=== PATIENT | female | born 1970 | race Caucasian/White ===

== ENCOUNTER 2016-10-05 11:55 | Observation (INO) | payer BC ==
[2016-10-05 12:17] VITALS: BMI 32.3
--- NOTE | 2016-10-05 12:27 | DR.URIAD ---
HPI - Time Seen Time seen: 12:26 - PCP Primary Care Physician: DR. GALEAS - HPI Comment HPI Comment: PATIENT IS WEAK AND DRAINED. NOT GETTING BETTWER ON OUT PATIENT MEDS. - Complaint Chief Complaint Doctors Comments: COUGH, CONGESTION, SOB AND CHEST PAIN FOR FEW DAYS Chief Complaint:: PT C/O CCC, SOB .. PT WAS SEEN AT THE [facility] ON 10/04/16 AND WAS GIVEN ZMAZX AND DX WITH BRONCHITIS,, PT C/O INCREASED SOB AND NOT ABLE TO GET UP SECREATIONS" Self Treatment fo Chief Complaint: MUCINEX, ROBITUSSIN.. - Reviewed Nurses Notes Reviewed: Yes - Source History Provided: Patient - Mode of Arrival Mode of Arrival: Ambulatory - Timing Onset of Chief Complaint: 10/01/16 - Context Recent Treated Infections: None History of Respiratory: None - Quality Quality of Cough: Productive, Yellow Rhinorrhea: Clear Shortness of Breath: Mild - Associated Signs and Symptoms Other Signs and Symptoms: Cough, Decreased Oral Intake, Fever, Myalgias, Shortness of Breath, Sore Throat, URI, Wheeze PMH - PMH Past Medical History: Yes Past Medical History: Seizures Past Surgical History: Yes Surgical History: Cholecystectomy, Hysterectomy Past Surgical History Comment: EGD,,,,, STRICTURE REMOVED, TUBAL , RECTACELE... - Family History History of Family Medical Conditions: Yes Family Medical History: Diabetes Mellitus, Cancer, [place], Coronary Artery Disease, Hypertension - Social History Does patient currently use any type of tobacco product: No Have you used tobacco products in the last 12 months: No Type of Tobacco Use: None Does any household member use tobacco: No Alcohol Use: None Do you use any recreational Drugs:: No Lives With: Family Lives Where: Home - infectious screening In the last 2 months have you had wt loss of >10#?: NO Have you had fever, night sweats or hemotysis?: No Have you traveled outside the country in the last 6 months?: No Isolation: Standard ROS - Review of Systems Constitutional: Fever, Weakness, Fatigue, Loss of Appetite Eyes: No Symptoms Reported. negative: Eye Pain, Discharge ENTM: Nose Discharge, Nose Congestion, Throat Pain. negative: Ear Pain Respiratoy: Productive Cough, Non-Productive Cough, Short of Breath, Wheezing. negative: Hemoptysis Cardiovascular: Chest Pain Gastrointestinal/Abdominal: No Symptoms Reported. negative: Abdominal Pain, Diarrhea, Nausea, Vomiting Genitourinary: No Symptoms Reported. negative: Dysuria, Frequency, Hematuria Neurological: Headache, Weakness, Dizziness Musculoskeletal: Muscle Pain, Chest wall Integumentary: Dryness Hematologic/Lymphatic: No Symptoms Reported Endocrine: No Symptoms Reported All Other Systems: Reviewed and Negative PE - Vital Signs Vitals: Temperature 98.2 F Pulse Rate 86 Respiratory Rate 22 Blood Pressure [Left Arm] 135/69 Blood Pressure [Right Arm] 140/88 Blood Pressure 120/82 O2 Sat by Pulse Oximetry 95 - General Limitations: No Limitations General Appearance: Alert - Head Head Exam: Normal Inspection - Eyes Eye exam: Normal Appearance - ENT ENT Exam: Normal External Ear Exam External Ear Exam: Normal External Inspection TM/Canal Exam: Bilateral Normal Nose Exam: Normal Nose Exam Mouth Exam: Normal Inspection Throat Exam: Normal Inspection - Neck Neck Exam: Trachea Midline. negative: Tenderness, Meningismus, Lymphadenopathy - Chest Chest Inspection: Symmetric Chest Wall Rise - Respiratory Respiratory Exam: Normal Lung Sounds Bilat Respiratory Exam: Bilateral Wheezing, Bilateral Rhonchi, Upper Wheezing, Lower Wheezing, Lower Rhonchi - Cardiovascular Cardiovascular Exam: Regular Rate, Normal Rhythm, Normal Heart Sounds - Abdominal Exam Abdominal Exam: Normal Bowel Sounds, Soft. negative: Tenderness - Extremeties Extremities Exam: Normal Inspection - Back Back Exam: Normal Inspection - Neurologic Neurological Exam: Alert, Oriented X3 - Psychiatric Psychiatric Exam: Anxious - Skin Skin Exam: Normal Color MDM - Additional Information Additional Information Obtained From: Family - Differential Diagnosis Differential Diagnosis: Influenza A, Influenza B, Streptococcal pharyngitis, Viral pharyngitis, Pneumonia, Sinsusitis, URI Course - Treatment Treatment: SEE ORDERS. - Consultation Consultation Comments: DISCUSS PATIENT WITH DR. GALEAS, HE WILL ADMIT PATIENT. - Education/Counseling Education/Counseling: Patient, Family, Education Educated On: Treatment, Diagnosis, Needs for Follow Up ROR - Labs Reviewed Laboratory Results Reviewed?: Yes Result Diagrams: 10/06/16 05:36 10/06/16 05:36 Laboratory: WBC 8.1 X10^3/uL (3.6-10.0) 10/06/16 05:36 RBC 4.77 X10^6/uL (3.5-5.4) 10/06/16 05:36 Hgb 14.4 g/dL (12.0-16.0) 10/06/16 05:36 Hct 42.6 % (36.0-47.0) 10/06/16 05:36 MCV 89.3 fL (80.0-100.0) 10/06/16 05:36 MCH 30.3 pg (27.0-34.0) 10/06/16 05:36 MCHC 33.9 g/dL (33.0-35.0) 10/06/16 05:36 RDW 13.0 % (11.6-16.5) 10/06/16 05:36 Plt Count 231 X10^3/uL (150.0-450.0) 10/06/16 05:36 MPV 6.6 fL (7.4-11.0) L 10/06/16 05:36 Neut % 41.9 % (42.0-75.0) L 10/06/16 05:36 Lymph % 37.4 % (21.0-51.0) 10/06/16 05:36 [place] % 17.2 % (0.0-13.0) H 10/06/16 05:36 Eos % 3.3 % (0.9-2.9) H 10/06/16 05:36 Baso % 0.2 % (0.2-1.0) 10/06/16 05:36 Neut # 3.4 x10^3/uL (2.2-4.8) 10/06/16 05:36 Lymph # 3.0 X10^3/uL (1.3-2.9) H 10/06/16 05:36 [place] # 1.4 x10^3/uL (0.3-0.8) H 10/06/16 05:36 Eos # 0.3 x10^3/uL (0.0-0.2) H 10/06/16 05:36 Baso # 0.0 X10^3/uL (0.0-0.1) 10/06/16 05:36 Absolute Nucleated RBC 0.0 /100WBC 10/06/16 05:36 D-Dimer 132 ng/mL (0-400) 10/05/16 12:41 Sample Site Lrad 10/05/16 12:26 ABG pH 7.480 (7.35-7.45) H 10/05/16 12:26 ABG pCO2 38.0 mmHg (35.0-45.0) 10/05/16 12:26 ABG pO2 87.0 mmHg (80.0-100.0) 10/05/16 12:26 ABG HCO3 28.3 mmol/L (22-26) H 10/05/16 12:26 ABG O2 Saturation 97.0 % (90-100) 10/05/16 12:26 ABG Base Excess 4.6 mmol/L (-2.0-2.0) H 10/05/16 12:26 Jack Test Pos 10/05/16 12:26 A-a Gradient 15.0 mmHg 10/05/16 12:26 FiO2 21.000 10/05/16 12:26 Blood Gas Comments Shai well 10/05/16 12:26 Sodium 142 mmol/L (136-145) 10/06/16 05:36 Corrected Sodium 142 mmol/L (136-145) 10/06/16 05:36 Potassium 3.9 mmol/L (3.5-5.1) 10/06/16 05:36 Chloride 105 mmol/L (98-107) 10/06/16 05:36 Carbon Dioxide 29.8 mmol/L (21-32) 10/06/16 05:36 BUN 17 mg/dL (7-18) 10/06/16 05:36 Creatinine 0.93 mg/dL (0.55-1.02) 10/06/16 05:36 Est GFR (MDRD) Af Amer > 60 (>60) 10/06/16 05:36 Est GFR (MDRD) Non-Af > 60 (>60) 10/06/16 05:36 Glucose 115 mg/dL (65-99) H 10/06/16 05:36 Calcium 8.4 mg/dL (8.5-10.1) L 10/06/16 05:36 Corrected Calcium 9.1 mg/dL (8.5-10.1) 10/06/16 05:36 Total Bilirubin 0.50 mg/dL (0.2-1.0) 10/06/16 05:36 AST 20 Units/L (15-37) 10/06/16 05:36 ALT 32 Units/L (12-78) 10/06/16 05:36 Alkaline Phosphatase 80 Units/L (46-116) 10/06/16 05:36 Total Protein 6.6 g/dL (6.4-8.2) 10/06/16 05:36 Albumin 3.1 g/dL (3.4-5.0) L 10/06/16 05:36 Globulin 3.5 g/dL (2.5-4.5) 10/06/16 05:36 Albumin/Globulin Ratio 0.9 Ratio (1.1-2.1) L 10/06/16 05:36 Specimen Type Clean catch urine 10/05/16 12:49 Urine Color Yellow (YELLOW) 10/05/16 12:49 Urine Appearance Clear (CLEAR) 10/05/16 12:49 Urine pH 6.0 (5.0 - 8.0) 10/05/16 12:49 Ur Specific [place] 1.015 (1.000-1.030) 10/05/16 12:49 Urine Protein Negative (NEGATIVE) 10/05/16 12:49 Urine Glucose (UA) Negative (NEGATIVE) 10/05/16 12:49 Urine Ketones Negative (NEGATIVE) 10/05/16 12:49 Urine Occult Blood 4+ (NEGATIVE) 10/05/16 12:49 Urine Nitrite Negative (NEGATIVE) 10/05/16 12:49 Urine Bilirubin Negative (NEGATIVE) 10/05/16 12:49 Urine Urobilinogen 1+ (NORMAL) 10/05/16 12:49 Ur Leukocyte Esterase 1+ (NEGATIVE) 10/05/16 12:49 Urine RBC 08 - 12 /HPF (NEGATIVE) 10/05/16 12:49 Urine WBC 01 - 04 /HPF (NEGATIVE) 10/05/16 12:49 Ur Squamous Epith Cells Few /HPF (NEGATIVE) 10/05/16 12:49 Amorphous Sediment 1+ /HPF (NEGATIVE) 10/05/16 12:49 Urine Bacteria Trace /HPF (NEGATIVE) 10/05/16 12:49 Urine Mucus Moderate /HPF (NEGATIVE) 10/05/16 12:49 Ur Culture Indicated? No/not indicated 10/05/16 12:49 Influenza A (H1N1) PCR Not detected (NOT DETECT) 10/05/16 12:44 Influenza Type A (PCR) Negative (NEGATIVE) 10/05/16 12:44 Influenza Type B (PCR) Positive (NEGATIVE) A 10/05/16 12:44 - XRAY XRAY Interpreted by: Radiologist XRAY Findings: REPORT DISCUSS WITH PATIEN. - Diagnosis Discharge Problem: Respiratory distress, Influenza Acute bronchitis Qualifiers: Bronchitis organism: other organism Qualified Code(s): J20.8 - Acute bronchitis due to other specified organisms - Discharge Plan Disposition: 09 ADMITTED INPATIENT Condition: Stable - Follow ups/Referrals - Instructions
--- NOTE | 2016-10-05 12:54 | RAD ---
HISTORY: Shortness of breath. Study: Single-view chest, done portably Comparison: June 15, 2012 Findings: Trachea is midline. The heart size is normal. There is hyperinflation of the lungs without infiltrat e, CHF, pleural fluid or pneumothorax. Osseous structures are unremarkable. IMPRESSION: Hyperinflation of the lungs without acute abnormality. Reported By:
[2016-10-05 12:56] LABS: BASOPHILS % (AUTO) 0.3 % (0.2-1.0); EOSINOPHILS # (AUTO) 0.1 x10^3/uL (0.0-0.2); EOSINOPHILS % (AUTO) 1.4 % (0.9-2.9); HEMATOCRIT 45.2 % (36.0-47.0); HEMOGLOBIN 15.5 g/dL (12.0-16.0); LYMPHOCYTES # (AUTO) 3.2 X10^3/uL (1.3-2.9); LYMPHOCYTES % (AUTO) 30.9 % (21.0-51.0); MEAN CORPUSCULAR HEMOGLOBIN 30.4 pg (27.0-34.0); MEAN CORPUSCULAR HGB CONC 34.4 g/dL (33.0-35.0); MEAN CORPUSCULAR VOLUME 88.4 fL (80.0-100.0); MEAN PLATELET VOLUME 6.6 fL (7.4-11.0); MONOCYTES # (AUTO) 1.7 x10^3/uL (0.3-0.8); MONOCYTES % (AUTO) 16.2 % (0.0-13.0); NEUTROPHILS # (AUTO) 5.2 x10^3/uL (2.2-4.8); NEUTROPHILS % (AUTO) 51.2 % (42.0-75.0); PLATELET COUNT 295 X10^3/uL (150.0-450.0); RED BLOOD COUNT 5.11 X10^6/uL (3.5-5.4); RED CELL DISTRIBUTION WIDTH 13.3 % (11.6-16.5); WHITE BLOOD COUNT 10.2 X10^3/uL (3.6-10.0)
[2016-10-05 12:57] LABS: BILIRUBIN,URINE NEGATIVE (NEGATIVE); BLOOD/HEMOGLOBIN,URINE 4+ (NEGATIVE); GLUCOSE, URINE NEGATIVE (NEGATIVE); KETONES,URINE NEGATIVE (NEGATIVE); LEUKOCYTE ESTERASE ,URINE 1+ (NEGATIVE); NITRITES,URINE NEGATIVE (NEGATIVE); PROTEIN,URINE NEGATIVE (NEGATIVE); UROBILINOGEN,URINE 1+ (NORMAL)
[2016-10-05 13:02] LABS: ABG BASE EXCESS 4.6 mmol/L (-2.0-2.0); ABG HCO3 28.3 mmol/L (22-26)
[2016-10-05 13:03] LABS: ABG ALLEN TEST POS
[2016-10-05 13:04] LABS: ALANINE AMINOTRANSFERASE 33 Units/L (12-78); ALBUMIN 3.5 g/dL (3.4-5.0); ALKALINE PHOSPHATASE 89 Units/L (46-116); ASPARTATE AMINO TRANSFERASE 18 Units/L (15-37); BLOOD UREA NITROGEN 23 mg/dL (7-18); CALCIUM 8.6 mg/dL (8.5-10.1); CARBON DIOXIDE 28.7 mmol/L (21-32); CHLORIDE 104 mmol/L (98-107); COR NA(FOR HYPERGLY) 143 mmol/L (136-145); GLUCOSE 156 mg/dL (65-99); SODIUM 142 mmol/L (136-145); TOTAL PROTEIN 7.2 g/dL (6.4-8.2); eGFR BLACK RACES > 60 (>60); eGFR NON BLACK RACES > 60 (>60)
[2016-10-05 13:15] LABS: D DIMER 132 ng/mL (0-400)
[2016-10-05 13:20] LABS: APPEARANCE,URINE CLEAR (CLEAR); BACTERIA,URINE TRACE /HPF (NEGATIVE); COLOR,URINE YELLOW (YELLOW); SQUAMOUS EPITHELIAL CELL,UR FEW /HPF (NEGATIVE)
[2016-10-05 13:21] LABS: AMORPHOUS SEDIMENT,UR 1+ /HPF (NEGATIVE); MUCUS,URINE MODERATE /HPF (NEGATIVE)
[2016-10-05] MEDS ORDERED: NS 1/2 1000 ML IV 1,000 ML IV ONE ×2 (13:46→20:27)
[2016-10-05] MEDS: NS 1/2 1000 ML IV 1,000 ML IV SCH ×2 (13:55→20:33)
[2016-10-05] MEDS ORDERED: TUSSIONEX PENNKINETIC SUSP PO PRN (15:02)
[2016-10-05] MEDS: LEVAQUIN PREMIX IV 750 MG 750 MG/150 ML BAG IV SCH (16:01)
[2016-10-05] MEDS: ROBITUSSIN DM PO SCH ×2 (16:05→20:33)
[2016-10-05] MEDS: DUONEB 0.5 MG/3 MG NEB SCH ×2 (16:07→20:59)
[2016-10-05] MEDS: TAMIFLU PO SCH (20:33)
[2016-10-05] MEDS ORDERED: TYLENOL 325 MG TAB PO PRN (20:54)
[2016-10-06] MEDS: DUONEB 0.5 MG/3 MG NEB SCH ×6 (01:35→20:12)
[2016-10-06] MEDS: NS 1/2 1000 ML IV 1,000 ML IV SCH ×3 (03:44→16:29)
[2016-10-06 06:11] LABS: BASOPHILS % (AUTO) 0.2 % (0.2-1.0); EOSINOPHILS # (AUTO) 0.3 x10^3/uL (0.0-0.2); EOSINOPHILS % (AUTO) 3.3 % (0.9-2.9); HEMATOCRIT 42.6 % (36.0-47.0); HEMOGLOBIN 14.4 g/dL (12.0-16.0); LYMPHOCYTES % (AUTO) 37.4 % (21.0-51.0); MEAN CORPUSCULAR HEMOGLOBIN 30.3 pg (27.0-34.0); MEAN CORPUSCULAR HGB CONC 33.9 g/dL (33.0-35.0); MEAN CORPUSCULAR VOLUME 89.3 fL (80.0-100.0); MEAN PLATELET VOLUME 6.6 fL (7.4-11.0); MONOCYTES # (AUTO) 1.4 x10^3/uL (0.3-0.8); MONOCYTES % (AUTO) 17.2 % (0.0-13.0); NEUTROPHILS # (AUTO) 3.4 x10^3/uL (2.2-4.8); NEUTROPHILS % (AUTO) 41.9 % (42.0-75.0); PLATELET COUNT 231 X10^3/uL (150.0-450.0); RED BLOOD COUNT 4.77 X10^6/uL (3.5-5.4); WHITE BLOOD COUNT 8.1 X10^3/uL (3.6-10.0)
[2016-10-06 08:14] LABS: ALANINE AMINOTRANSFERASE 32 Units/L (12-78); ALBUMIN 3.1 g/dL (3.4-5.0); ALKALINE PHOSPHATASE 80 Units/L (46-116); ASPARTATE AMINO TRANSFERASE 20 Units/L (15-37); BLOOD UREA NITROGEN 17 mg/dL (7-18); CALCIUM 8.4 mg/dL (8.5-10.1); CARBON DIOXIDE 29.8 mmol/L (21-32); CHLORIDE 105 mmol/L (98-107); COR CA(FOR HYPOALB) 9.1 mg/dL (8.5-10.1); COR NA(FOR HYPERGLY) 142 mmol/L (136-145); CREATININE 0.93 mg/dL (0.55-1.02); GLUCOSE 115 mg/dL (65-99); SODIUM 142 mmol/L (136-145); TOTAL PROTEIN 6.6 g/dL (6.4-8.2); eGFR BLACK RACES > 60 (>60); eGFR NON BLACK RACES > 60 (>60)
[2016-10-06] MEDS ORDERED: NS 1/2 1000 ML IV 1,000 ML IV ONE (08:43)
[2016-10-06] MEDS: ROBITUSSIN DM PO SCH ×4 (08:48→21:42)
[2016-10-06] MEDS: LEVAQUIN PREMIX IV 750 MG 750 MG/150 ML BAG IV SCH (08:48)
[2016-10-06] MEDS: TAMIFLU PO SCH ×2 (08:48→21:43)
[2016-10-06] MEDS: FLONASE NASAL SPRAY ENOSTRIL SCH (11:18)
[2016-10-06] MEDS: MAXZIDE 37.5/25 MG PO SCH (11:21)
[2016-10-06] MEDS: ZyrTEC TAB 10 MG PO SCH (11:22)
[2016-10-06] MEDS: SINGULAIR TAB 10 MG PO SCH (11:22)
[2016-10-06] MEDS: SOLU-Medrol 40 MG VIAL IVP SCH ×2 (13:27→21:42)
[2016-10-06] MEDS ORDERED: LAMICTAL TAB 100 MG PO SCH (21:00)
[2016-10-06] MEDS ORDERED: [UNRECOGNIZED DRUG - OTHER] PO SCH (21:00)
[2016-10-06] MEDS ORDERED: [UNRECOGNIZED DRUG - OTHER] PO SCH (21:00)
[2016-10-07] MEDS: DUONEB 0.5 MG/3 MG NEB SCH ×3 (00:29→08:37)
[2016-10-07 05:14] LABS: BASOPHILS % (AUTO) 0.2 % (0.2-1.0); EOSINOPHILS % (AUTO) 0.1 % (0.9-2.9); HEMATOCRIT 43.4 % (36.0-47.0); LYMPHOCYTES # (AUTO) 1.3 X10^3/uL (1.3-2.9); LYMPHOCYTES % (AUTO) 16.7 % (21.0-51.0); MEAN CORPUSCULAR HEMOGLOBIN 30.8 pg (27.0-34.0); MEAN CORPUSCULAR HGB CONC 34.6 g/dL (33.0-35.0); MEAN CORPUSCULAR VOLUME 89.1 fL (80.0-100.0); MEAN PLATELET VOLUME 6.8 fL (7.4-11.0); MONOCYTES # (AUTO) 0.3 x10^3/uL (0.3-0.8); MONOCYTES % (AUTO) 4.1 % (0.0-13.0); NEUTROPHILS # (AUTO) 6.3 x10^3/uL (2.2-4.8); NEUTROPHILS % (AUTO) 78.9 % (42.0-75.0); PLATELET COUNT 279 X10^3/uL (150.0-450.0); RED BLOOD COUNT 4.87 X10^6/uL (3.5-5.4); RED CELL DISTRIBUTION WIDTH 12.7 % (11.6-16.5)
[2016-10-07 05:18] LABS: ALANINE AMINOTRANSFERASE 33 Units/L (12-78); ALBUMIN 3.4 g/dL (3.4-5.0); ALKALINE PHOSPHATASE 84 Units/L (46-116); ASPARTATE AMINO TRANSFERASE 11 Units/L (15-37); BLOOD UREA NITROGEN 19 mg/dL (7-18); CARBON DIOXIDE 24.3 mmol/L (21-32); CHLORIDE 103 mmol/L (98-107); COR NA(FOR HYPERGLY) 143 mmol/L (136-145); CREATININE 1.04 mg/dL (0.55-1.02); GLUCOSE 282 mg/dL (65-99); SODIUM 139 mmol/L (136-145); TOTAL PROTEIN 7.4 g/dL (6.4-8.2); eGFR BLACK RACES > 60 (>60); eGFR NON BLACK RACES > 60 (>60)
[2016-10-07] MEDS ORDERED: NS 1/2 1000 ML IV 1,000 ML IV ONE (05:43)
[2016-10-07] MEDS: NS 1/2 1000 ML IV 1,000 ML IV SCH (06:04)
[2016-10-07] MEDS: SOLU-Medrol 40 MG VIAL IVP SCH (06:04)
--- NOTE | 2016-10-07 06:49 | RAD ---
HISTORY: Cough, bronchitis Study: Chest one view Comparison: October 05, 2016 Findings: The trachea is midline. The cardiac silhouette is unremarkable. The lungs are clear without focal infiltrate or effusion. The bony thorax is unremarkable. IMPRESSION: 1. No acute cardiopulmonary disease. Reported By:
[2016-10-07] MEDS: FLONASE NASAL SPRAY ENOSTRIL SCH (09:04)
[2016-10-07] MEDS: ZyrTEC TAB 10 MG PO SCH (09:04)
[2016-10-07] MEDS: TAMIFLU PO SCH (09:04)
[2016-10-07] MEDS: SINGULAIR TAB 10 MG PO SCH (09:04)
[2016-10-07] MEDS: LEVAQUIN PREMIX IV 750 MG 750 MG/150 ML BAG IV SCH (09:04)
[2016-10-07] MEDS: MAXZIDE 37.5/25 MG PO SCH (09:04)
[2016-10-07] MEDS: ROBITUSSIN DM PO SCH (09:04)
[2016-10-07 11:02] VITALS: BP 121/75
== END 2016-10-07 11:40 | disposition home or self-care (01) ==
LOC: ER 12:08 → MED/SURG 14:23
PROVIDERS: ADMIT Internal Medicine; ATTEND Internal Medicine
DX: J20.8 Acute bronchitis due to other specified organisms (principal); R07.89 Other chest pain; R06.02 Shortness of breath; R06.09 Other forms of dyspnea; J10.1 Influenza due to other identified influenza virus with other respiratory manifestations; R73.09 Other abnormal glucose
CPT/HCPCS: 36415; 36600; 71010; 80053; 81001; 82803; 85025; 85378; 87502; 87503; 94640; 94760; 96365; 99284; A4222; G9035; G0378; J1956; J2920; J7620

== ENCOUNTER 2017-12-28 11:35 | Observation (INO) ==
--- NOTE | 2017-12-28 13:30 | RAD ---
CHEST RADIOGRAPHS PA AND LATERAL VIEWS CLINICAL HISTORY: 47-year-old female with shortness of breath cough and congestion. COMPARISON: Chest radiograph 10/07/2016. FINDINGS: The cardiopericardial silhouette is normal. Patchy airspace opacities within the lingula w ithout effusion or pneumothorax. The lungs are well inflated. Pulmonary vascularity is normal. Imaged osseous structures are intact. Soft tissues are unremarkable. IMPRESSION: Patchy airspace opacities within the lingula suspicious for pneumonia, correlate clinically and follo w-up to resolution. Reported By:
[2017-12-28] MEDS ORDERED: SALINE 3% 15 ML NEB TX ONE (13:59)
[2017-12-28] MEDS ORDERED: SALINE 3% 15 ML NEB TX NEB ONE (14:00)
[2017-12-28] MEDS ORDERED: NS 1/2 1000 ML IV 1,000 ML IV ONE (14:21)
[2017-12-28] MEDS: ROBITUSSIN DM PO SCH ×3 (14:24→20:52)
[2017-12-28] MEDS: SOLU-Medrol 40 MG VIAL IVP SCH ×3 (14:24→22:53)
[2017-12-28] MEDS: FORTAZ or TAZICEF VIAL INJ 1 G in NS 100 ML IV + SPIKE MINIBAG* 100 ML IV SCH ×3 (14:27→22:53)
[2017-12-28] MEDS: LEVAQUIN PREMIX IV 750 MG 750 MG/150 ML BAG IV SCH (14:27)
[2017-12-28] MEDS: NS 1/2 1000 ML IV 1,000 ML IV SCH (14:30)
[2017-12-28 15:23] LABS: BASOPHILS # (AUTO) 0.1 X10^3/uL (0.0-0.1); BASOPHILS % (AUTO) 0.7 % (0.2-1.0); EOSINOPHILS # (AUTO) 0.5 x10^3/uL (0.0-0.2); EOSINOPHILS % (AUTO) 4.7 % (0.9-2.9); HEMATOCRIT 44.8 % (36.0-47.0); HEMOGLOBIN 15.4 g/dL (12.0-16.0); LYMPHOCYTES # (AUTO) 2.1 X10^3/uL (1.3-2.9); LYMPHOCYTES % (AUTO) 21.4 % (21.0-51.0); MEAN CORPUSCULAR HEMOGLOBIN 30.7 pg (27.0-34.0); MEAN CORPUSCULAR HGB CONC 34.3 g/dL (33.0-35.0); MEAN CORPUSCULAR VOLUME 89.6 fL (80.0-100.0); MEAN PLATELET VOLUME 6.5 fL (7.4-11.0); MONOCYTES # (AUTO) 1.2 x10^3/uL (0.3-0.8); MONOCYTES % (AUTO) 12.1 % (0.0-13.0); NEUTROPHILS # (AUTO) 5.9 x10^3/uL (2.2-4.8); NEUTROPHILS % (AUTO) 61.1 % (42.0-75.0); PLATELET COUNT 321 X10^3/uL (150.0-450.0); RED BLOOD COUNT 5.01 X10^6/uL (3.5-5.4); RED CELL DISTRIBUTION WIDTH 12.7 % (11.6-16.5); WHITE BLOOD COUNT 9.6 X10^3/uL (3.6-10.0)
[2017-12-28 15:35] VITALS: BMI 33.7
[2017-12-28] MEDS ORDERED: CHLORASEPTIC SPRAY MT PRN (15:40)
[2017-12-28] MEDS: DUONEB 0.5 MG/3 MG NEB SCH ×2 (16:28→21:08)
[2017-12-28 18:23] LABS: ALANINE AMINOTRANSFERASE 29 Units/L (12-78); ALBUMIN 3.3 g/dL (3.4-5.0); ALKALINE PHOSPHATASE 88 Units/L (46-116); ASPARTATE AMINO TRANSFERASE 17 Units/L (15-37); BLOOD UREA NITROGEN 16 mg/dL (7-18); CALCIUM 8.8 mg/dL (8.5-10.1); CARBON DIOXIDE 29.1 mmol/L (21-32); CHLORIDE 102 mmol/L (98-107); COR CA(FOR HYPOALB) 9.4 mg/dL (8.5-10.1); COR NA(FOR HYPERGLY) 139 mmol/L (136-145); CREATININE 0.88 mg/dL (0.55-1.02); SODIUM 138 mmol/L (136-145); TOTAL PROTEIN 7.3 g/dL (6.4-8.2); eGFR NON BLACK RACES > 60 (>60)
[2017-12-28] MEDS: HumuLIN R SUBCUT PRN (23:14)
[2017-12-29] MEDS: DUONEB 0.5 MG/3 MG NEB SCH ×6 (00:59→21:36)
[2017-12-29] MEDS ORDERED: TYLENOL 325 MG TAB PO PRN (03:32)
[2017-12-29] MEDS: NS 1/2 1000 ML IV 1,000 ML IV SCH ×3 (04:25→16:58)
[2017-12-29 05:24] LABS: BASOPHILS % (AUTO) 0.4 % (0.2-1.0); HEMATOCRIT 41.4 % (36.0-47.0); HEMOGLOBIN 14.6 g/dL (12.0-16.0); LYMPHOCYTES # (AUTO) 1.4 X10^3/uL (1.3-2.9); LYMPHOCYTES % (AUTO) 15.2 % (21.0-51.0); MEAN CORPUSCULAR HEMOGLOBIN 31.2 pg (27.0-34.0); MEAN CORPUSCULAR HGB CONC 35.3 g/dL (33.0-35.0); MEAN CORPUSCULAR VOLUME 88.2 fL (80.0-100.0); MEAN PLATELET VOLUME 6.6 fL (7.4-11.0); MONOCYTES # (AUTO) 0.3 x10^3/uL (0.3-0.8); NEUTROPHILS # (AUTO) 7.4 x10^3/uL (2.2-4.8); NEUTROPHILS % (AUTO) 81.4 % (42.0-75.0); PLATELET COUNT 351 X10^3/uL (150.0-450.0); RED BLOOD COUNT 4.69 X10^6/uL (3.5-5.4); RED CELL DISTRIBUTION WIDTH 12.6 % (11.6-16.5); WHITE BLOOD COUNT 9.2 X10^3/uL (3.6-10.0)
[2017-12-29 05:31] LABS: ALANINE AMINOTRANSFERASE 27 Units/L (12-78); ALBUMIN 3.2 g/dL (3.4-5.0); ALKALINE PHOSPHATASE 88 Units/L (46-116); ASPARTATE AMINO TRANSFERASE 12 Units/L (15-37); BLOOD UREA NITROGEN 13 mg/dL (7-18); CALCIUM 9.2 mg/dL (8.5-10.1); CARBON DIOXIDE 26.8 mmol/L (21-32); CHLORIDE 104 mmol/L (98-107); COR CA(FOR HYPOALB) 9.8 mg/dL (8.5-10.1); COR NA(FOR HYPERGLY) 141 mmol/L (136-145); CREATININE 0.89 mg/dL (0.55-1.02); SODIUM 138 mmol/L (136-145); TOTAL PROTEIN 7.3 g/dL (6.4-8.2); eGFR NON BLACK RACES > 60 (>60)
[2017-12-29] MEDS ORDERED: NS 1/2 1000 ML IV 1,000 ML IV ONE ×2 (06:10→22:37)
[2017-12-29] MEDS: SOLU-Medrol 40 MG VIAL IVP SCH ×3 (06:17→21:43)
[2017-12-29] MEDS: FORTAZ or TAZICEF VIAL INJ 1 G in NS 100 ML IV + SPIKE MINIBAG* 100 ML IV SCH ×3 (06:17→21:44)
--- NOTE | 2017-12-29 06:50 | RAD ---
HISTORY: Pneumonia, shortness of breath Study: Chest AP portable Comparison: 12/28/2017 Findings: The heart is within normal limits in size. The claudia are normal. The right lung is clear. There has be en some improvement in the lingular infiltrate being followed. Residual infiltrate and subsegmental a telectasis remain. No pleural effusions are identified. The bony thorax is unremarkable. IMPRESSION: Some improvement lingular infiltrate and subsegmental atelectasis Reported By:
[2017-12-29] MEDS ORDERED: PROPRANOLOL HCL PO SCH ×2 (09:00→21:00)
[2017-12-29] MEDS ORDERED: AZELASTINE FLUTICASONE Intranasal SCH (09:00)
[2017-12-29] MEDS ORDERED: MONTELUKAST SODIUM PO SCH (09:00)
[2017-12-29] MEDS ORDERED: ZyrTEC TAB 10 MG PO SCH ×2 (09:00→21:00)
[2017-12-29] MEDS: LEVAQUIN PREMIX IV 750 MG 750 MG/150 ML BAG IV SCH (09:24)
[2017-12-29] MEDS: ROBITUSSIN DM PO SCH ×4 (09:24→21:43)
[2017-12-29] MEDS: FLONASE NASAL SPRAY ENOSTRIL SCH ×2 (09:25→21:43)
[2017-12-29] MEDS: COLACE CAP 100 MG PO SCH ×2 (11:18→21:43)
[2017-12-29] MEDS: HumuLIN R SUBCUT PRN ×3 (11:40→22:00)
[2017-12-29] MEDS ORDERED: RESTORIL CAP 15 MG PO PRN (11:58)
[2017-12-29] MEDS: SINGULAIR TAB 10 MG PO SCH (12:17)
[2017-12-29] MEDS ORDERED: SNACK - Diabetic Appropriate PO SCH (20:00)
[2017-12-29] MEDS ORDERED: LAMICTAL TAB 100 MG PO SCH (21:00)
[2017-12-30] MEDS: DUONEB 0.5 MG/3 MG NEB SCH ×4 (01:02→12:16)
[2017-12-30 05:26] LABS: BASOPHILS % (AUTO) 0.2 % (0.2-1.0); EOSINOPHILS % (AUTO) 0.1 % (0.9-2.9); HEMATOCRIT 40.1 % (36.0-47.0); HEMOGLOBIN 13.9 g/dL (12.0-16.0); LYMPHOCYTES # (AUTO) 1.9 X10^3/uL (1.3-2.9); LYMPHOCYTES % (AUTO) 12.3 % (21.0-51.0); MEAN CORPUSCULAR HEMOGLOBIN 31.1 pg (27.0-34.0); MEAN CORPUSCULAR HGB CONC 34.7 g/dL (33.0-35.0); MEAN CORPUSCULAR VOLUME 89.5 fL (80.0-100.0); MEAN PLATELET VOLUME 6.7 fL (7.4-11.0); MONOCYTES # (AUTO) 0.6 x10^3/uL (0.3-0.8); NEUTROPHILS # (AUTO) 13.1 x10^3/uL (2.2-4.8); NEUTROPHILS % (AUTO) 83.4 % (42.0-75.0); PLATELET COUNT 363 X10^3/uL (150.0-450.0); RED BLOOD COUNT 4.48 X10^6/uL (3.5-5.4); RED CELL DISTRIBUTION WIDTH 12.6 % (11.6-16.5); WHITE BLOOD COUNT 15.7 X10^3/uL (3.6-10.0)
[2017-12-30 05:40] LABS: ALANINE AMINOTRANSFERASE 28 Units/L (12-78); ALKALINE PHOSPHATASE 80 Units/L (46-116); ASPARTATE AMINO TRANSFERASE 10 Units/L (15-37); BLOOD UREA NITROGEN 19 mg/dL (7-18); CHLORIDE 106 mmol/L (98-107); COR CA(FOR HYPOALB) 9.8 mg/dL (8.5-10.1); COR NA(FOR HYPERGLY) 142 mmol/L (136-145); CREATININE 0.92 mg/dL (0.55-1.02); SODIUM 140 mmol/L (136-145); TOTAL PROTEIN 6.7 g/dL (6.4-8.2); eGFR NON BLACK RACES > 60 (>60)
[2017-12-30] MEDS: FORTAZ or TAZICEF VIAL INJ 1 G in NS 100 ML IV + SPIKE MINIBAG* 100 ML IV SCH (06:24)
[2017-12-30] MEDS: NS 1/2 1000 ML IV 1,000 ML IV SCH (06:25)
[2017-12-30] MEDS: SOLU-Medrol 40 MG VIAL IVP SCH (07:04)
--- NOTE | 2017-12-30 07:37 | RAD ---
HISTORY: Follow-up pneumonia Study: Chest AP portable Comparison: 12/29/2017 Findings: The heart is within normal limits in size. The claudia are normal. The right lung remains clear. Continu ed improvement is noted in the lingular lung infiltrate being followed. Minimal residual infiltrate a nd subsegmental atelectasis remains. No pleural effusions are identified. The bony thorax is unremark able. IMPRESSION: No significant change from the prior examination Reported By:
[2017-12-30] MEDS: FLONASE NASAL SPRAY ENOSTRIL SCH (08:46)
[2017-12-30] MEDS: SINGULAIR TAB 10 MG PO SCH (08:46)
[2017-12-30] MEDS: COLACE CAP 100 MG PO SCH (08:46)
[2017-12-30] MEDS: ROBITUSSIN DM PO SCH (08:46)
[2017-12-30] MEDS: LEVAQUIN PREMIX IV 750 MG 750 MG/150 ML BAG IV SCH (08:46)
--- NOTE | 2017-12-30 11:22 | DR.UPDATE ---
H&P Update History and Physical Update: WAS SEEN IN THE OFFICE TODAY. A H&P WAS COMPLETED PRIOR TO ADMISSION. PATIENT HAS BEEN SEEN AND EXAMINED WITH NO CHANGES NOTED TO H&P. Changes noted: NO Yes with the following:
[2017-12-30] MEDS: HumuLIN R SUBCUT PRN (12:24)
[2017-12-30 14:35] VITALS: BP 140/78
--- NOTE | 2018-02-05 21:20 | DR.CARTERD ---
- Discharge Summary for: Discharge Summary for Date of:: 12/30/17 - Admission Date Date of Admission: 12/28/17 - Admission Diagnoses Admission Diagnosis: 1. Bronchopneumonia 2. Shortness of breath 3. Fever 4. Cough - Discharge Date Discharge Date: 12/30/17 - Discharge Diagnoses Discharge Diagnosis: 1. Bronchopneumonia 2. Shortness of breath 3. Fever 4. Cough - Hospital Course Hospital Course: Day one, Ms. Marr is a 47 year old patient of ours who presented to our office for a follow up for Bronchitis. Patient was placed on Cefdinir and Albuterol neb treatments two weeks prior with no improvement in symptoms. Patient reported worsening symptoms of cough, congestion, shortness of breath, fever, and fatigue. On auscultation, lungs were noted with wheezing throughout. We admitted patient to the hospital for further treatment under the Pneumonia Protocol. Blood and sputum cultures were obtained. We started IV antibiotics along with aggressive neb treatments. We continued to monitor. On day two, patient continued with productive cough. She reported shortness of breath and fatigue. Patient was afebrile and vital signs were stable. On auscultation, lungs were noted with scattered wheezing throughout. We continued treatment for Bronchopneumonia. On day three, patient reported improvement in symptoms. She denied shortness of breath and reported significant improvement in cough. Sputum was thin and easy to clear. Final blood and sputum cultures were negative. On auscultation, lungs were noted with scattered rhonchi to upper lobes. Vital signs stable. Labs wnl. We planned for discharge. Instructions for medications and follow up were discussed with patient and family, both voiced understanding. Patient discharged home in stable condition with family. - Discharge Medications Discharge Medications: Home Medication List azelastine-fluticasone [Dymista] 2 spray INTRANASAL BID 12/28/17 [History] cefdinir 300 mg PO BID 12/28/17 [History] dextromethorphan-guaifenesin [Mucinex DM] 1 tab PO Q12H #20 tab 12/30/17 [Rx] ipratropium-albuterol 1 ea NEB TID #50 ml 12/30/17 [Rx] levofloxacin [Levaquin] 750 mg PO DAILY #10 tab 12/30/17 [Rx] triamterene-hydrochlorothiazid 1 tab PO QAM 12/30/17 [History] Prescriptions: dextromethorphan-guaifenesin [Mucinex DM] Yuri Mckeon ipratropium-albuterol Yuri Mckeon levofloxacin [Levaquin] Yuri Mckeon Home medications lamotrigine [Lamictal] 100 mg PO HS 06/09/12 Montelukast Sodium 1 tab PO DAILY 10/05/16 Propranolol HCl [Propranolol HCl ER] 1 cap PO HS 10/05/16 cetirizine [Zyrtec] 1 tab PO HS 10/05/16 - Discharge Disposition Discharge Disposition: Patient is to follow up in our office in one week.
--- NOTE | 2018-02-25 20:26 | PCM.PROG ---
Progress Note - Progress Note for Day of Date of Exam: 12/29/17 - Subjective Subjective: WAS ADMITTED FOR BRONCHOPNEUMONIA, FAILED OUTPATIENT TREATMENT. TODAY, SHE IS ALERT AND ORIENTED, LYING IN BED ON MORNING ROUNDS. SHE CONTINUES WITH COMPLAINTS OF COUGH AND SHORTNESS OF BREATH. ON EXAMINATION, HEART IS REGULAR IN RATE AND RHYTHM. BILATERAL LUNGS ARE NOTED WITH WHEEZING. ABDOMEN IS ROUND, SOFT, AND NON-TENDER WITH NORMAL BOWEL SOUNDS NOTED IN ALL QUADRANTS. HER VITALS THIS MORNING WERE [id number]%RA-123/68. SHE IS HEMODYNAMICALLY STABLE. CHEST XRAY REVEALED: Some improvement lingular infiltrate and subsegmental atelectasis. TODAY, WE WILL CONTINUE WITH IV ANTIBIOTICS, RESPIRATORY TREATMENTS, AND CURRENT PLAN OF CARE. OTHERWISE, WE WILL FOLLOW UP WITH AM LABS AND CONTINUE TO MONITOR PATIENT. - Past Medical Family Social History Past Med/Fam/Surg Hx: No changes since H&P Allergies: Allergies povidone Allergy (Intermediate, Verified 12/28/17 14:04) hydrocodone Allergy (Mild, Verified 12/28/17 14:00) hallucination latex Allergy (Mild, Verified 12/29/17 10:08) morphine Allergy (Mild, Verified 12/28/17 14:01) phenyltoloxamine Allergy (Mild, Verified 12/28/17 14:03) hallucination Sulfa (Sulfonamide Antibiotics) [SULFA] Allergy (Unknown, Verified 12/28/17 14: 06) povidone-iodine [From Betadine] Allergy (Verified 12/28/17 14:07) soap [From Betadine] Allergy (Verified 12/28/17 14:07) tuss pearls Allergy (Uncoded 12/28/17 14:11) - Review of Systems ROS: No change since H&P - Vital Signs and I&O's Vital Signs: Temperature 98.3 F Pulse Rate [Right Brachial] 73 Pulse Rate 73 Respiratory Rate 20 Blood Pressure [Left Arm] 116/80 Blood Pressure [Right Arm] 140/78 Blood Pressure 121/75 O2 Sat by Pulse Oximetry 93 - Physical Exam Oriented: Normal Eyes: Normal Ear: Normal Nose: Normal Throat: Normal Respiratory: Generalized, Wheezes Cardiovascular: Normal : Normal Auscultation: Bowel Sounds: Normal Palpation: Normal Tenderness: Normal Skin: Normal Musculoskeletal: Normal Psychiatric: Normal Mood Description: Calm Affect: Normal Speech Pattern: Clear, Appropriate - Laboratory and Diagnostics Result Diagrams: 12/30/17 04:35 12/30/17 04:35 Labs: 12/28/17 15:10 Blood Blood Culture - Final 12/28/17 15:05 Blood Blood Culture - Final 12/28/17 14:42 Sputum - Expectorated Sputum Sputum Culture - Final 12/28/17 14:42 Sputum - Expectorated Sputum - Final Laboratory WBC 15.7 X10^3/uL (3.6-10.0) H 12/30/17 04:35 RBC 4.48 X10^6/uL (3.5-5.4) 12/30/17 04:35 Hgb 13.9 g/dL (12.0-16.0) 12/30/17 04:35 Hct 40.1 % (36.0-47.0) 12/30/17 04:35 MCV 89.5 fL (80.0-100.0) 12/30/17 04:35 MCH 31.1 pg (27.0-34.0) 12/30/17 04:35 MCHC 34.7 g/dL (33.0-35.0) 12/30/17 04:35 RDW 12.6 % (11.6-16.5) 12/30/17 04:35 Plt Count 363 X10^3/uL (150.0-450.0) 12/30/17 04:35 MPV 6.7 fL (7.4-11.0) L 12/30/17 04:35 Neut % (Auto) 83.4 % (42.0-75.0) H 12/30/17 04:35 Lymph % (Auto) 12.3 % (21.0-51.0) L 12/30/17 04:35 [place] % (Auto) 4.0 % (0.0-13.0) 12/30/17 04:35 Eos % (Auto) 0.1 % (0.9-2.9) L 12/30/17 04:35 Baso % (Auto) 0.2 % (0.2-1.0) 12/30/17 04:35 Neut # (Auto) 13.1 x10^3/uL (2.2-4.8) H 12/30/17 04:35 Lymph # (Auto) 1.9 X10^3/uL (1.3-2.9) 12/30/17 04:35 [place] # (Auto) 0.6 x10^3/uL (0.3-0.8) 12/30/17 04:35 Eos # (Auto) 0.0 x10^3/uL (0.0-0.2) 12/30/17 04:35 Baso # (Auto) 0.0 X10^3/uL (0.0-0.1) 12/30/17 04:35 Absolute Nucleated RBC 0.0 /100WBC 12/30/17 04:35 Sodium 140 mmol/L (136-145) 12/30/17 04:35 Corrected Sodium 142 mmol/L (136-145) 12/30/17 04:35 Potassium 3.9 mmol/L (3.5-5.1) 12/30/17 04:35 Chloride 106 mmol/L (98-107) 12/30/17 04:35 Carbon Dioxide 28.0 mmol/L (21-32) 12/30/17 04:35 BUN 19 mg/dL (7-18) H 12/30/17 04:35 Creatinine 0.92 mg/dL (0.55-1.02) 12/30/17 04:35 Est GFR (MDRD) Af Amer > 60 (>60) 12/30/17 04:35 Est GFR (MDRD) Non-Af > 60 (>60) 12/30/17 04:35 Glucose 199 mg/dL (65-99) H 12/30/17 04:35 POC Glucose (mg/dL) 264 mg/dL (65-99) H 12/30/17 11:36 Calcium 9.0 mg/dL (8.5-10.1) 12/30/17 04:35 Corrected Calcium 9.8 mg/dL (8.5-10.1) 12/30/17 04:35 Total Bilirubin 0.10 mg/dL (0.2-1.0) L 12/30/17 04:35 AST 10 Units/L (15-37) L 12/30/17 04:35 ALT 28 Units/L (12-78) 12/30/17 04:35 Alkaline Phosphatase 80 Units/L (46-116) 12/30/17 04:35 Total Protein 6.7 g/dL (6.4-8.2) 12/30/17 04:35 Albumin 3.0 g/dL (3.4-5.0) L 12/30/17 04:35 Globulin 3.7 g/dL (2.5-4.5) 12/30/17 04:35 Albumin/Globulin Ratio 0.8 Ratio (1.1-2.1) L 12/30/17 04:35 - Plan (1) Bronchopneumonia Status: Acute Plan: IV ANTIBIOTICS, RESPIRATORY TREATMENTS, SUPPLEMENTAL OXYGEN, CONTINUE TO MONITOR
== END 2017-12-30 12:55 | disposition home or self-care (01) ==
LOC: MED/SURG
PROVIDERS: ADMIT Internal Medicine; ATTEND Internal Medicine
DX: J18.0 Bronchopneumonia, unspecified organism; R73.09 Other abnormal glucose; E03.8 Other specified hypothyroidism; E55.9 Vitamin D deficiency, unspecified; D72.828 Other elevated white blood cell count; E78.2 Mixed hyperlipidemia; R06.09 Other forms of dyspnea; I10 Essential (primary) hypertension
CPT/HCPCS: 36415; 71010; 71020; 71045; 71046; 80053; 85025; 87040; 87070; 87205; 94640; 94669; 94760; A4222; G0378; J0713; J1815; J1956; J2920; J3490; J7050; J7620

== ENCOUNTER 2019-02-01 14:34 | Inpatient (IN) ==
[2019-02-01] MEDS ORDERED: HumuLIN R SUBCUT PRN (16:19)
[2019-02-01] MEDS ORDERED: SALINE 3% 15 ML NEB TX NEB ONE (17:00)
[2019-02-01 17:01] LABS: BASOPHILS # (AUTO) 0.1 X10^3/uL (0.0-0.1); BASOPHILS % (AUTO) 0.5 % (0.2-1.0); EOSINOPHILS # (AUTO) 0.4 x10^3/uL (0.0-0.2); EOSINOPHILS % (AUTO) 4.3 % (0.9-2.9); HEMATOCRIT 43.5 % (36.0-47.0); HEMOGLOBIN 15.4 g/dL (12.0-16.0); LYMPHOCYTES # (AUTO) 3.8 X10^3/uL (1.3-2.9); LYMPHOCYTES % (AUTO) 37.9 % (21.0-51.0); MEAN CORPUSCULAR HEMOGLOBIN 31.6 pg (27.0-34.0); MEAN CORPUSCULAR HGB CONC 35.5 g/dL (33.0-35.0); MEAN CORPUSCULAR VOLUME 89.1 fL (80.0-100.0); MEAN PLATELET VOLUME 6.5 fL (7.4-11.0); MONOCYTES % (AUTO) 10.2 % (0.0-13.0); NEUTROPHILS # (AUTO) 4.8 x10^3/uL (2.2-4.8); NEUTROPHILS % (AUTO) 47.1 % (42.0-75.0); PLATELET COUNT 367 X10^3/uL (150.0-450.0); RED BLOOD COUNT 4.88 X10^6/uL (3.5-5.4); RED CELL DISTRIBUTION WIDTH 12.7 % (11.6-16.5); WHITE BLOOD COUNT 10.1 X10^3/uL (3.6-10.0)
[2019-02-01 17:02] VITALS: BMI 34.7
[2019-02-01] MEDS ORDERED: NS 1/2 1000 ML IV 1,000 ML ONE (17:02)
--- NOTE | 2019-02-01 17:12 | RAD ---
HISTORY: Pneumonia Study: Single-view of the chest Comparison: May 17, 2018 Findings: The patient is slightly rotated. The cardiac silhouette is at the upper limits of normal. The lungs are clear without focal infiltrate or effusion. IMPRESSION: 1. No acute cardiopulmonary disease. Reported By:
[2019-02-01 17:13] LABS: ALANINE AMINOTRANSFERASE 25 Units/L (12-78); ALBUMIN 3.8 g/dL (3.4-5.0); ALKALINE PHOSPHATASE 100 Units/L (46-116); ASPARTATE AMINO TRANSFERASE 16 Units/L (15-37); BLOOD UREA NITROGEN 11 mg/dL (7-18); CALCIUM 8.8 mg/dL (8.5-10.1); CARBON DIOXIDE 27.6 mmol/L (21-32); CHLORIDE 104 mmol/L (98-107); COR NA(FOR HYPERGLY) 141 mmol/L (136-145); CREATININE 1.05 mg/dL (0.55-1.02); SODIUM 140 mmol/L (136-145); TOTAL PROTEIN 7.3 g/dL (6.4-8.2); eGFR NON BLACK RACES 60 (>60)
[2019-02-01] MEDS: NS 1/2 1000 ML IV 1,000 ML IV SCH (17:19)
[2019-02-01] MEDS: ROBITUSSIN DM PO SCH ×2 (17:20→21:30)
[2019-02-01] MEDS: VSL#3 PO SCH (17:20)
[2019-02-01] MEDS: LEVAQUIN PREMIX IV 750 MG 750 MG/150 ML BAG IV SCH (18:17)
[2019-02-01] MEDS ORDERED: MICRO K EXTEN CAP 10 MEQ PO PRN (18:46)
[2019-02-01] MEDS ORDERED: MAGNESIUM SULFATE 1 GRAM/100 mL PREMIX 1 GM/100 ML BAG IV PRN (18:46)
[2019-02-01] MEDS ORDERED: POTASSIUM CHL 60 MEQ/NS 0.45% 500 ML IV PRN (18:46)
[2019-02-01] MEDS ORDERED: POTASSIUM CHL 40 MEQ/NS 0.45% 500 ML IV PRN (18:46)
[2019-02-01] MEDS ORDERED: POTASSIUM CHLORIDE LIQ 20 MEQ UDC PO PRN (18:46)
[2019-02-01] MEDS ORDERED: KLOR-CON PO PRN (18:46)
[2019-02-01] MEDS ORDERED: K-RIDER 10 MEQ/NS 100 ML 10 MEQ/100 ML BAG IV PRN (18:46)
[2019-02-01] MEDS ORDERED: K-DUR TAB 20 MEQ PO PRN (18:46)
[2019-02-01] MEDS: MUCOMYST 20% 200 MG/ML NEB SCH (20:39)
[2019-02-01] MEDS: DUONEB 0.5 MG/3 MG NEB SCH (20:39)
[2019-02-01] MEDS: PULMICORT NEB TX 0.5 MG NEB SCH (20:39)
[2019-02-01] MEDS: SNACK - Diabetic Appropriate PO SCH (21:00)
[2019-02-01] MEDS: PROTONIX TAB 40 MG PO SCH (21:30)
[2019-02-01] MEDS: ZyrTEC TAB 10 MG PO SCH (21:30)
[2019-02-01] MEDS: LAMICTAL TAB 100 MG PO SCH (21:30)
[2019-02-01] MEDS: AZELASTINE FLUTICASONE Intranasal SCH (21:30)
[2019-02-01] MEDS: FORTAZ or TAZICEF VIAL INJ IVP SCH (22:07)
[2019-02-02] MEDS: NS 1/2 1000 ML IV 1,000 ML IV SCH ×3 (05:37→20:52)
[2019-02-02] MEDS: FORTAZ or TAZICEF VIAL INJ IVP SCH ×3 (05:37→22:26)
[2019-02-02 05:43] LABS: BASOPHILS % (AUTO) 0.3 % (0.2-1.0); EOSINOPHILS # (AUTO) 0.3 x10^3/uL (0.0-0.2); EOSINOPHILS % (AUTO) 3.8 % (0.9-2.9); HEMATOCRIT 40.8 % (36.0-47.0); HEMOGLOBIN 14.2 g/dL (12.0-16.0); LYMPHOCYTES # (AUTO) 3.9 X10^3/uL (1.3-2.9); LYMPHOCYTES % (AUTO) 44.3 % (21.0-51.0); MEAN CORPUSCULAR HEMOGLOBIN 31.5 pg (27.0-34.0); MEAN CORPUSCULAR HGB CONC 34.8 g/dL (33.0-35.0); MEAN CORPUSCULAR VOLUME 90.6 fL (80.0-100.0); MEAN PLATELET VOLUME 6.9 fL (7.4-11.0); MONOCYTES # (AUTO) 0.9 x10^3/uL (0.3-0.8); MONOCYTES % (AUTO) 10.6 % (0.0-13.0); NEUTROPHILS # (AUTO) 3.6 x10^3/uL (2.2-4.8); PLATELET COUNT 283 X10^3/uL (150.0-450.0); RED CELL DISTRIBUTION WIDTH 12.6 % (11.6-16.5); WHITE BLOOD COUNT 8.7 X10^3/uL (3.6-10.0)
[2019-02-02 06:11] LABS: ALANINE AMINOTRANSFERASE 20 Units/L (12-78); ALBUMIN 3.2 g/dL (3.4-5.0); ALKALINE PHOSPHATASE 85 Units/L (46-116); ASPARTATE AMINO TRANSFERASE 13 Units/L (15-37); BLOOD UREA NITROGEN 11 mg/dL (7-18); CALCIUM 8.4 mg/dL (8.5-10.1); CARBON DIOXIDE 28.2 mmol/L (21-32); CHLORIDE 106 mmol/L (98-107); CREATININE 0.85 mg/dL (0.55-1.02); SODIUM 143 mmol/L (136-145); TOTAL PROTEIN 6.4 g/dL (6.4-8.2); eGFR NON BLACK RACES > 60 (>60)
--- NOTE | 2019-02-02 06:43 | RAD ---
HISTORY: Shortness of breath Study: Chest AP portable Comparison: None Findings: The heart is upper limits normal in size. No congestive heart failure is noted. The claudia are normal. The lung lewis are clear. No pleural effusions are identified. The bony thorax is unremarkable. IMPRESSION: No significant abnormality identified Reported By:
[2019-02-02] MEDS ORDERED: NS 1/2 1000 ML IV 1,000 ML ONE ×2 (06:44→20:35)
[2019-02-02] MEDS: PROTONIX TAB 40 MG PO SCH ×2 (08:32→20:52)
[2019-02-02] MEDS: LEVAQUIN PREMIX IV 750 MG 750 MG/150 ML BAG IV SCH (08:32)
[2019-02-02] MEDS: SINGULAIR TAB 10 MG PO SCH (08:32)
[2019-02-02] MEDS: VSL#3 PO SCH (08:32)
[2019-02-02] MEDS: ROBITUSSIN DM PO SCH ×4 (08:35→20:50)
[2019-02-02] MEDS: AZELASTINE FLUTICASONE Intranasal SCH ×2 (08:38→20:49)
[2019-02-02] MEDS: PULMICORT NEB TX 0.5 MG NEB SCH ×2 (08:48→20:20)
[2019-02-02] MEDS: DUONEB 0.5 MG/3 MG NEB SCH ×4 (08:48→20:20)
[2019-02-02] MEDS: MUCOMYST 20% 200 MG/ML NEB SCH ×4 (08:48→20:20)
[2019-02-02] MEDS ORDERED: PROPRANOLOL 60 MG PO SCH (09:00)
--- NOTE | 2019-02-02 11:20 | DR.UPDATE ---
H&P Update History and Physical Update: History and Physical reviewed and patient examined. Changes noted: Yes with the following: WAS SEEN IN THE OFFICE TODAY FOR COMPLAINTS OF COUGH, COLD, CONGESTION, AND FEVER. SHE HAS BEEN TREATED WITH AUGMENTIN 875/125MG PO BID X 7 DAYS, LEVAQUIN 750MG PO DAILY X 6 DAYS, AND RESPIRATORY TREATMENTS. SHE DENIES IMPROVEMENT IN SYMPTOMS. WE ADMITTED PATIENT FOR FURTHER EVALUATION AND TREATMENT OF BRONCHOPNEUMONIA. ON ADMISSION, WE PLAN TO OBTAIN LABS, CHEST XRAY, AND START HER ON THE PNEUMONIA PROTOCOL WITH IV FORTAZ AND IV LEVAQUIN. OTHERWISE, WE WILL FOLLOW UP WITH AM LABS AND CONTINUE TO MONITOR.
[2019-02-02] MEDS ORDERED: TYLENOL 325 MG TAB PO PRN (11:22)
[2019-02-02] MEDS ORDERED: TYLENOL 325 MG TAB PO ONE (12:23)
[2019-02-02] MEDS: LAMICTAL TAB 100 MG PO SCH (20:48)
[2019-02-02] MEDS: PROPRANOLOL 60 MG PO SCH (20:50)
[2019-02-02] MEDS: ZyrTEC TAB 10 MG PO SCH (20:50)
[2019-02-02] MEDS: SNACK - Diabetic Appropriate PO SCH (20:52)
[2019-02-03 05:17] LABS: BASOPHILS # (AUTO) 0.1 X10^3/uL (0.0-0.1); BASOPHILS % (AUTO) 0.5 % (0.2-1.0); EOSINOPHILS # (AUTO) 0.4 x10^3/uL (0.0-0.2); EOSINOPHILS % (AUTO) 3.8 % (0.9-2.9); HEMOGLOBIN 14.6 g/dL (12.0-16.0); LYMPHOCYTES # (AUTO) 3.7 X10^3/uL (1.3-2.9); LYMPHOCYTES % (AUTO) 39.1 % (21.0-51.0); MEAN CORPUSCULAR HEMOGLOBIN 31.3 pg (27.0-34.0); MEAN CORPUSCULAR HGB CONC 34.8 g/dL (33.0-35.0); MEAN CORPUSCULAR VOLUME 90.1 fL (80.0-100.0); MEAN PLATELET VOLUME 6.9 fL (7.4-11.0); MONOCYTES # (AUTO) 0.9 x10^3/uL (0.3-0.8); MONOCYTES % (AUTO) 9.9 % (0.0-13.0); NEUTROPHILS # (AUTO) 4.5 x10^3/uL (2.2-4.8); NEUTROPHILS % (AUTO) 46.7 % (42.0-75.0); PLATELET COUNT 274 X10^3/uL (150.0-450.0); RED BLOOD COUNT 4.66 X10^6/uL (3.5-5.4); RED CELL DISTRIBUTION WIDTH 12.5 % (11.6-16.5); WHITE BLOOD COUNT 9.5 X10^3/uL (3.6-10.0)
[2019-02-03 05:23] LABS: ALANINE AMINOTRANSFERASE 20 Units/L (12-78); ALBUMIN 3.3 g/dL (3.4-5.0); ALKALINE PHOSPHATASE 89 Units/L (46-116); ASPARTATE AMINO TRANSFERASE 10 Units/L (15-37); BLOOD UREA NITROGEN 12 mg/dL (7-18); CALCIUM 8.8 mg/dL (8.5-10.1); CARBON DIOXIDE 28.5 mmol/L (21-32); CHLORIDE 106 mmol/L (98-107); COR CA(FOR HYPOALB) 9.4 mg/dL (8.5-10.1); COR NA(FOR HYPERGLY) 143 mmol/L (136-145); CREATININE 0.88 mg/dL (0.55-1.02); SODIUM 142 mmol/L (136-145); TOTAL PROTEIN 6.7 g/dL (6.4-8.2); eGFR NON BLACK RACES > 60 (>60)
[2019-02-03] MEDS ORDERED: NS 100 ML IV + SPIKE MINIBAG* 100 ML ONE (05:44)
--- NOTE | 2019-02-03 05:59 | RAD ---
HISTORY: Shortness of breath Study: Chest AP portable Comparison: 02/02/2019 Findings: Patient is rotated to the left. The heart is upper limits normal in size. No congestive heart failure is noted. No acute alveolar infiltrates with or pleural effusions are identified. The bony thorax is unremarkable. IMPRESSION: Lungs remain clear Reported By:
[2019-02-03] MEDS: FORTAZ or TAZICEF VIAL INJ IVP SCH ×3 (06:09→21:10)
[2019-02-03] MEDS: ROBITUSSIN DM PO SCH ×4 (08:19→21:10)
[2019-02-03] MEDS: PROTONIX TAB 40 MG PO SCH ×2 (08:19→21:07)
[2019-02-03] MEDS: VSL#3 PO SCH (08:19)
[2019-02-03] MEDS: LEVAQUIN PREMIX IV 750 MG 750 MG/150 ML BAG IV SCH (08:20)
[2019-02-03] MEDS: SINGULAIR TAB 10 MG PO SCH (08:20)
[2019-02-03] MEDS: AZELASTINE FLUTICASONE Intranasal SCH ×2 (08:20→21:40)
[2019-02-03] MEDS: MUCOMYST 20% 200 MG/ML NEB SCH ×4 (08:40→20:15)
[2019-02-03] MEDS: PULMICORT NEB TX 0.5 MG NEB SCH ×2 (08:40→20:15)
[2019-02-03] MEDS: DUONEB 0.5 MG/3 MG NEB SCH ×4 (08:48→20:15)
[2019-02-03] MEDS: NS 1/2 1000 ML IV 1,000 ML IV SCH ×2 (11:01→15:23)
[2019-02-03] MEDS ORDERED: NS 1/2 1000 ML IV 1,000 ML ONE (15:15)
[2019-02-03 17:44] LABS: CKMB % 3.9 % (<4); CREATINE KINASE 26 Units/L (26-192); CREATINE KINASE MB < 1.0 ng/mL (0-4.0); TROPONIN I < 0.02 ng/mL (0-1.5)
--- NOTE | 2019-02-03 18:56 | PCM.PROG ---
Progress Note - Progress Note for Day of Date of Exam: 02/02/19 - Subjective Subjective: WAS ADMITTED FOR BRONCHOPNEUMONIA, FAILED OUTPATIENT TREATMENT. TODAY, SHE IS ALERT AND ORIENTED, LYING IN BED ON MORNING ROUNDS. SHE CONTINUES WITH A NON-PRODUCTIVE COUGH AND SHORTNESS OF BREATH. ON EXAMINATION, HEART IS REGULAR IN RATE AND RHYTHM. BILATERAL LUNGS ARE NOTED WITH SCATTERED WHEEZING. ABDOMEN IS ROUND, SOFT, AND NON-TENDER WITH NORMAL BOWEL SOUNDS NOTED IN ALL QUADRANTS. HER VITALS THIS MORNING ARE: 98.1-68-20-96%-129/70. LABS WERE OBTAINED. ABNORMAL LAB VALUES INCLUDE THE FOLLOWING: GLUCOSE 109, CALCIUM 8.4, AST 13, ALBUMIN 3.2. BLOOD CULTURES ARE PENDING. A CHEST XRAY WAS OBTAINED THIS MORNING AND REVEALED: The heart is upper limits normal in size. No congestive heart failure is noted. The claudia are normal. The lung lewis are clear. No pleural effusions are identified. The bony thorax is unremarkable. SHE IS CURRENTLY RECEIVING IV FORTAZ, IV LEVAQUIN, RESPIRATORY TX, AND SUPPLEMENTAL OXYGEN. HOME MEDICATIONS WERE RESUMED. WE WILL CONTINUE WITH CURRENT PLAN OF CARE TODAY. OTHERWISE, WE WILL FOLLOW UP WITH AM LABS AND CHEST XRAY AND CONTINUE TO MONITOR. - Past Medical Family Social History Past Med/Fam/Surg Hx: No changes since H&P Allergies: Allergies povidone Allergy (Intermediate, Verified 12/28/17 14:04) hydrocodone Allergy (Mild, Verified 12/28/17 14:00) hallucination latex Allergy (Mild, Verified 12/29/17 10:08) morphine Allergy (Mild, Verified 12/28/17 14:01) phenyltoloxamine Allergy (Mild, Verified 12/28/17 14:03) hallucination Sulfa (Sulfonamide Antibiotics) [SULFA] Allergy (Unknown, Verified 12/28/17 14:06) povidone-iodine [From Betadine] Allergy (Verified 12/28/17 14:07) soap [From Betadine] Allergy (Verified 12/28/17 14:07) tuss pearls Allergy (Uncoded 12/28/17 14:11) - Review of Systems ROS: No change since H&P - Vital Signs and I&O's Vital Signs: Temperature 98.0 F Pulse Rate [Right] 74 Pulse Rate 67 Respiratory Rate 20 Blood Pressure [Left Arm] 136/80 Blood Pressure [Right Arm] 116/68 Blood Pressure 136/83 O2 Sat by Pulse Oximetry 97 Intake and Output: Intake & Output 02/01/19 02/02/19 02/03/19 02/04/19 11:59 11:59 11:59 11:59 Intake Total 940 / 940 1540 / 1540 1200 / 1200 Balance 940 / 940 1540 / 1540 1200 / 1200 - Physical Exam Oriented: Normal Eyes: Normal Ear: Normal Nose: Normal Throat: Normal Respiratory: Generalized, Diminished, Wheezes Cardiovascular: Normal, Murmur. negative: S3, S4 : Normal Auscultation: Bowel Sounds: Normal Palpation: Normal Tenderness: Normal Skin: Normal Musculoskeletal: Normal Psychiatric: Normal Mood Description: Calm Affect: Normal Speech Pattern: Clear, Appropriate - Laboratory and Diagnostics Result Diagrams: 02/03/19 04:29 02/03/19 04:29 Labs: 02/01/19 16:30 Blood Blood Culture - Preliminary 02/01/19 16:28 Blood Blood Culture - Preliminary Laboratory WBC 9.5 X10^3/uL (3.6-10.0) 02/03/19 04:29 RBC 4.66 X10^6/uL (3.5-5.4) 02/03/19 04:29 Hgb 14.6 g/dL (12.0-16.0) 02/03/19 04:29 Hct 42.0 % (36.0-47.0) 02/03/19 04:29 MCV 90.1 fL (80.0-100.0) 02/03/19 04:29 MCH 31.3 pg (27.0-34.0) 02/03/19 04:29 MCHC 34.8 g/dL (33.0-35.0) 02/03/19 04:29 RDW 12.5 % (11.6-16.5) 02/03/19 04:29 Plt Count 274 X10^3/uL (150.0-450.0) 02/03/19 04:29 MPV 6.9 fL (7.4-11.0) L 02/03/19 04:29 Neut % (Auto) 46.7 % (42.0-75.0) 02/03/19 04:29 Lymph % (Auto) 39.1 % (21.0-51.0) 02/03/19 04:29 [place] % (Auto) 9.9 % (0.0-13.0) 02/03/19 04:29 Eos % (Auto) 3.8 % (0.9-2.9) H 02/03/19 04:29 Baso % (Auto) 0.5 % (0.2-1.0) 02/03/19 04:29 Neut # (Auto) 4.5 x10^3/uL (2.2-4.8) 02/03/19 04:29 Lymph # (Auto) 3.7 X10^3/uL (1.3-2.9) H 02/03/19 04:29 [place] # (Auto) 0.9 x10^3/uL (0.3-0.8) H 02/03/19 04:29 Eos # (Auto) 0.4 x10^3/uL (0.0-0.2) H 02/03/19 04:29 Baso # (Auto) 0.1 X10^3/uL (0.0-0.1) 02/03/19 04:29 Absolute Nucleated RBC 0.0 /100WBC 02/03/19 04:29 Sodium 142 mmol/L (136-145) 02/03/19 04:29 Corrected Sodium 143 mmol/L (136-145) 02/03/19 04:29 Potassium 4.3 mmol/L (3.5-5.1) 02/03/19 04:29 Chloride 106 mmol/L (98-107) 02/03/19 04:29 Carbon Dioxide 28.5 mmol/L (21-32) 02/03/19 04:29 BUN 12 mg/dL (7-18) 02/03/19 04:29 Creatinine 0.88 mg/dL (0.55-1.02) 02/03/19 04:29 Est GFR (MDRD) Af Amer > 60 (>60) 02/03/19 04:29 Est GFR (MDRD) Non-Af > 60 (>60) 02/03/19 04:29 Glucose 134 mg/dL (65-99) H 02/03/19 04:29 POC Glucose (mg/dL) 165 mg/dL (65-99) H 02/03/19 17:13 Calcium 8.8 mg/dL (8.5-10.1) 02/03/19 04:29 Corrected Calcium 9.4 mg/dL (8.5-10.1) 02/03/19 04:29 Magnesium 1.9 mg/dL (1.7-2.9) 02/02/19 04:19 Total Bilirubin 0.40 mg/dL (0.2-1.0) 02/03/19 04:29 AST 10 Units/L (15-37) L 02/03/19 04:29 ALT 20 Units/L (12-78) 02/03/19 04:29 Alkaline Phosphatase 89 Units/L (46-116) 02/03/19 04:29 Creatine Kinase 26 Units/L (26-192) 02/03/19 17:16 CK-MB (CK-2) < 1.0 ng/mL (0-4.0) 02/03/19 17:16 CK/CKMB % Calc 3.9 % (<4) 02/03/19 17:16 Troponin I < 0.02 ng/mL (0-1.5) 02/03/19 17:16 Total Protein 6.7 g/dL (6.4-8.2) 02/03/19 04:29 Albumin 3.3 g/dL (3.4-5.0) L 02/03/19 04:29 Globulin 3.4 g/dL (2.5-4.5) 02/03/19 04:29 Albumin/Globulin Ratio 1.0 Ratio (1.1-2.1) L 02/03/19 04:29 - Plan (1) Bronchopneumonia Status: Acute Plan: IV FORTAZ, IV LEVAQUIN, RESPIRATORY TX, SUPPELEMENTAL OXYGEN, CONTINUE TO MONITOR
[2019-02-03] MEDS ORDERED: NS 1/2 1000 ML IV 1,000 ML IV SCH (19:00)
[2019-02-03] MEDS: SNACK - Diabetic Appropriate PO SCH (20:00)
[2019-02-03] MEDS: PROPRANOLOL 60 MG PO SCH (21:00)
[2019-02-03] MEDS: LAMICTAL TAB 100 MG PO SCH (21:07)
[2019-02-03] MEDS: ZyrTEC TAB 10 MG PO SCH (21:08)
[2019-02-04 05:04] LABS: BASOPHILS # (AUTO) 0.1 X10^3/uL (0.0-0.1); BASOPHILS % (AUTO) 0.5 % (0.2-1.0); EOSINOPHILS # (AUTO) 0.5 x10^3/uL (0.0-0.2); EOSINOPHILS % (AUTO) 4.2 % (0.9-2.9); HEMATOCRIT 43.1 % (36.0-47.0); HEMOGLOBIN 14.9 g/dL (12.0-16.0); LYMPHOCYTES # (AUTO) 4.4 X10^3/uL (1.3-2.9); LYMPHOCYTES % (AUTO) 37.2 % (21.0-51.0); MEAN CORPUSCULAR HEMOGLOBIN 31.1 pg (27.0-34.0); MEAN CORPUSCULAR HGB CONC 34.6 g/dL (33.0-35.0); MEAN CORPUSCULAR VOLUME 89.9 fL (80.0-100.0); MEAN PLATELET VOLUME 6.9 fL (7.4-11.0); MONOCYTES # (AUTO) 1.4 x10^3/uL (0.3-0.8); NEUTROPHILS # (AUTO) 5.4 x10^3/uL (2.2-4.8); NEUTROPHILS % (AUTO) 46.1 % (42.0-75.0); PLATELET COUNT 308 X10^3/uL (150.0-450.0); RED CELL DISTRIBUTION WIDTH 12.5 % (11.6-16.5); WHITE BLOOD COUNT 11.7 X10^3/uL (3.6-10.0)
[2019-02-04 05:16] LABS: ALANINE AMINOTRANSFERASE 19 Units/L (12-78); ALBUMIN 3.4 g/dL (3.4-5.0); ALKALINE PHOSPHATASE 98 Units/L (46-116); ASPARTATE AMINO TRANSFERASE < 6 Units/L (15-37); BLOOD UREA NITROGEN 16 mg/dL (7-18); CALCIUM 8.7 mg/dL (8.5-10.1); CARBON DIOXIDE 27.7 mmol/L (21-32); CHLORIDE 103 mmol/L (98-107); COR NA(FOR HYPERGLY) 142 mmol/L (136-145); CREATININE 0.89 mg/dL (0.55-1.02); SODIUM 140 mmol/L (136-145); TOTAL PROTEIN 6.7 g/dL (6.4-8.2); eGFR NON BLACK RACES > 60 (>60)
--- NOTE | 2019-02-04 06:00 | RAD ---
HISTORY: Shortness of breath Study: Chest AP portable Comparison: 02/03/2019 Findings: The heart is within normal limits in size. The claudia are normal. The lung lewis are clear. No pleural effusions are identified. The bony thorax is unremarkable. IMPRESSION: Lungs remain clear Reported By:
[2019-02-04] MEDS: FORTAZ or TAZICEF VIAL INJ IVP SCH (06:07)
[2019-02-04] MEDS: VSL#3 PO SCH (08:44)
[2019-02-04] MEDS: LEVAQUIN PREMIX IV 750 MG 750 MG/150 ML BAG IV SCH (08:44)
[2019-02-04] MEDS: PROTONIX TAB 40 MG PO SCH (08:44)
[2019-02-04] MEDS: ROBITUSSIN DM PO SCH (08:44)
[2019-02-04] MEDS: AZELASTINE FLUTICASONE Intranasal SCH (08:45)
[2019-02-04] MEDS: SINGULAIR TAB 10 MG PO SCH (08:45)
[2019-02-04] MEDS: PULMICORT NEB TX 0.5 MG NEB SCH (08:46)
[2019-02-04] MEDS: DUONEB 0.5 MG/3 MG NEB SCH (08:46)
[2019-02-04] MEDS: MUCOMYST 20% 200 MG/ML NEB SCH (08:46)
[2019-02-04] MEDS ORDERED: ZOFRAN INJ 4 MG VIAL IVP PRN (11:57)
[2019-02-04] MEDS ORDERED: TORADOL 30 MG VIAL IVP NR (12:30)
[2019-02-04 13:30] VITALS: BP 108/63
== END 2019-02-04 13:30 | disposition home or self-care (01) | DRG 195 ==
LOC: MED/SURG 16:00
PROVIDERS: ADMIT Internal Medicine; ATTEND Internal Medicine
DX: E11.65 Type 2 diabetes mellitus with hyperglycemia; R06.2 Wheezing; J18.0 Bronchopneumonia, unspecified organism; E78.2 Mixed hyperlipidemia; R53.83 Other fatigue
CPT/HCPCS: 36415; 71010; 71045; 80053; 82550; 82553; 83735; 84484; 85025; 87040; 93005; 94640; 94669; 94760; A4222; J0713; J1885; J1956; J2405; J3490; J7620; J7626

== ENCOUNTER 2019-02-08 12:50 | Observation (INO) ==
[2019-02-08] MEDS ORDERED: ZOFRAN INJ 4 MG VIAL IVP ONE (12:58)
[2019-02-08] MEDS ORDERED: DEMEROL INJ IVP ONE (12:58)
[2019-02-08 13:03] VITALS: BMI 34.3
[2019-02-08] MEDS ORDERED: ZOFRAN INJ 4 MG VIAL ONE (13:05)
[2019-02-08] MEDS ORDERED: DEMEROL INJ ONE (13:06)
--- NOTE | 2019-02-08 13:15 | RAD ---
HISTORY: Chest pain Study: Single-view chest Comparison: 02/04/2019. Findings: Trachea is midline. Heart size is normal. There is mild hyperinflation of the lungs with stable increased interstitial markings bilaterally. No infiltrate, CHF, pleural fluid or pneumothorax is seen. Osseous structures are intact. IMPRESSION: Mild hyperinflation of the lungs with stable increased interstitial markings bilaterally. An acute process is not identified. Reported By:
[2019-02-08 13:29] LABS: BASOPHILS # (AUTO) 0.1 X10^3/uL (0.0-0.1); BASOPHILS % (AUTO) 0.4 % (0.2-1.0); EOSINOPHILS # (AUTO) 0.3 x10^3/uL (0.0-0.2); EOSINOPHILS % (AUTO) 2.2 % (0.9-2.9); HEMATOCRIT 44.5 % (36.0-47.0); HEMOGLOBIN 15.9 g/dL (12.0-16.0); LYMPHOCYTES # (AUTO) 3.1 X10^3/uL (1.3-2.9); LYMPHOCYTES % (AUTO) 26.4 % (21.0-51.0); MEAN CORPUSCULAR HEMOGLOBIN 31.8 pg (27.0-34.0); MEAN CORPUSCULAR HGB CONC 35.7 g/dL (33.0-35.0); MEAN PLATELET VOLUME 6.4 fL (7.4-11.0); MONOCYTES # (AUTO) 0.8 x10^3/uL (0.3-0.8); MONOCYTES % (AUTO) 6.6 % (0.0-13.0); NEUTROPHILS # (AUTO) 7.6 x10^3/uL (2.2-4.8); NEUTROPHILS % (AUTO) 64.4 % (42.0-75.0); PLATELET COUNT 346 X10^3/uL (150.0-450.0); RED CELL DISTRIBUTION WIDTH 12.5 % (11.6-16.5); WHITE BLOOD COUNT 11.8 X10^3/uL (3.6-10.0)
[2019-02-08 13:46] LABS: ALANINE AMINOTRANSFERASE 32 Units/L (12-78); ALBUMIN 3.8 g/dL (3.4-5.0); ALKALINE PHOSPHATASE 104 Units/L (46-116); AMYLASE 37 Units/L (25-115); ASPARTATE AMINO TRANSFERASE 16 Units/L (15-37); BLOOD UREA NITROGEN 14 mg/dL (7-18); CALCIUM 8.9 mg/dL (8.5-10.1); CARBON DIOXIDE 28.8 mmol/L (21-32); CHLORIDE 103 mmol/L (98-107); CKMB % 3.9 % (<4); COR NA(FOR HYPERGLY) 141 mmol/L (136-145); CREATINE KINASE 26 Units/L (26-192); CREATINE KINASE MB < 1.0 ng/mL (0-4.0); CREATININE 0.83 mg/dL (0.55-1.02); LIPASE 131 Units/L (73-393); SODIUM 140 mmol/L (136-145); TOTAL PROTEIN 7.4 g/dL (6.4-8.2); TROPONIN I < 0.02 ng/mL (0-1.5); eGFR NON BLACK RACES > 60 (>60)
--- NOTE | 2019-02-08 15:29 | VAS ---
Lower extremity doppler sonogram Indication: Chest pain Comparison: None available TECHNIQUE: Multiple moore scale and color flow Doppler images of the deep venous system were obtained of the right and left lower extremity. FINDINGS: The deep venous system of the right and left lower extremities were evaluated from the level of the common femoral vein through the popliteal vein. Normal color flow and augmentation can be observed. In addition, normal compression is seen throughout the deep venous system. IMPRESSION: 1. Negative for bilateral lower extremity DVT. Reported By:
--- NOTE | 2019-02-08 15:54 | CT ---
CT chest without contrast Indication: Chest pain Comparison: None available Technique: Multiple axial images of the chest were obtained from the thoracic inlet to the upper abdomen without the administration of IV contrast. Coronal and sagittal reformatted images were provided. Dose reduction techniques including automated exposure control (AEC) and adjustment of mA and kV were utilized. Patient is reported to be allergic to IV contrast Findings: Overall sensitivity in detection of vascular injury, acute aortic syndrome or mediastinal hematoma is severely limited given lack of IV contrast administration. The thyroid gland is normal. Heart size is normal. No pericardial effusion. Coronary arteries demonstrate no significant calcified atherosclerotic disease. No enlarged mediastinal or hilar lymphadenopathy. No focal airspace consolidation, nodule or mass. No pleural effusion or pneumothorax. Central airways are clear. Limited visualization of the upper abdomen demonstrates prior cholecystectomy. No acute osseous abnormality. IMPRESSION: No acute cardiopulmonary abnormality. Reported By:
--- NOTE | 2019-02-08 16:40 | ED.ABDFE ---
HPI Time Seen Time Seen by Provider: 02/08/19 12:55 HPI Comment HPI Comment: PATIENT IS 48YR OLD WHITE FEMALE IN THE EMERGENCY ROOM WITH LEFT UPPER BACK CHEST PAIN, 10/10 RADIATING TO SIDE OF CHEST TIMES 4 DAYS AND WORSE TODAY. PATIENT DISCHARGE FROM HOSPITAL 02/04/2019 AFTER SHE WAS TREATED FOR PNEU ERIC. PATIENT SAID PAIN STARTED WHEN SHE WAS IN THE HOSPITAL, IT GOT BETTER THEN WORSE TODAY. DENIES TRAUMA OR DYSURIA. Complaint Doctors Chief Complaint Comments: CHEST PAIN TIMES 4DAYS. Reviewed Nurses Notes Review: Yes Source History Provided: Parent Mode of arrival Mode of Arrival: Ambulatory Timing Came on: Suddenly Duration Since Onset: Constant Duration: Hours Location Location: RUQ, RLQ and Epigastric Severity Severity: Moderate Quality Quality: Sharp Context History of: None Modifying factors Worsening Factors: Movement Improving Factors: Lying Still Associated signs and symptoms Associated Signs and Symptoms: None PMH PMH Past Surgical History: Yes Surgical History: Cholecystectomy and Hysterectomy Family History Family Medical History: Heart Failure Social History Do you use any recreational Drugs:: No infectious screening Isolation: Standard ROS Review of Systems Constitutional: No Symptoms Reported and See HPI; negative Fever, Weakness and Fatigue Eyes: No Symptoms Reported and See HPI ENTM: No Symptoms Reported and See HPI Respiratoy: No Symptoms Reported; negative Short of Breath and Wheezing Cardiovascular: See HPI and Chest Pain; negative Edema and Palpitations Gastrointestinal/Abdominal: No Symptoms Reported and See HPI; negative Abdominal Pain, Constipation, Diarrhea, Nausea and Vomiting Genitourinary: No Symptoms Reported and See HPI; negative Dysuria, Frequency, Hematuria and Pain Neurological: No Symptoms Reported and See HPI; negative Headache, Weakness and Dizziness Musculoskeletal: No Symptoms Reported and See HPI; negative Back Pain and Muscle Pain Integumentary: No Symptoms Reported and See HPI; negative Change in Color, Rash and Juandice Endocrine: No Symptoms Reported and See HPI; negative Increased Thirst, Increased Urine and Decreased Appetite Psychiatric: No Symptoms Reported and See HPI All Other Systems: Reviewed and Negative PE Vital Signs Vitals: Temperature 97.9 F Pulse Rate [Left Brachial] 62 Pulse Rate 72 Respiratory Rate 18 Blood Pressure [Left Arm] 107/67 Blood Pressure [Right Arm] 116/68 Blood Pressure 130/87 O2 Sat by Pulse Oximetry 96 General Limitations: No Limitations General Appearance: Alert and In No Apparent Distress Head Head Exam: Normal Inspection and Atraumatic Eyes Eye exam: Normal Appearance and PERRL; negative Scleral Icterus and Conjunctival Injection ENT ENT Exam: Normal Exam, Normal Oropharynx, Normal External Ear Exam and TM's Normal Bilaterally Neck Neck Exam: Normal Inspection and Trachea Midline; negative Tenderness and Lymphadenopathy Chest Chest Inspection: Normal Inspection and Symmetric Chest Wall Rise; negative Tenderness Respiratory Respiratory Exam: Normal Lung Sounds Bilat; negative Accessory Muscle Use, Chest Wall Tenderness and Respiratory Distress Respiratory Exam: Bilateral: Clear to Auscultation Cardiovascular Cardiovascular Exam: Regular Rate, Normal Rhythm and Normal Heart Sounds; negative Systolic Murmur and Diastolic Murmur Abdominal Exam Abdominal Exam: Normal Inspection, Normal Bowel Sounds and Soft; negative Tenderness Rectal Rectal Exam: Deferred Back Back Exam: Normal Inspection; negative (R) CVA Tenderness, (L) CVA Tenderness and Paraspinal Tenderness Extremeties Extremities Exam: Normal Inspection and Normal Capillary Refill; negative Tenderness, Edema and Calf Tenderness External Exam: Female: Deferred : Speculum Exam (Female): Deferred : Bimanual Exam (female): Deferred Neurologic Neurological Exam: Alert, Oriented X3 and CN II-XII Intact; negative Motor Sensory Deficit Psychiatric Psychiatric Exam: Normal Affect and Normal Mood Skin Skin Exam: Warm, Dry, Intact and Normal Color MDM Differential Diagnosis Other differential diagnosis: CHEST PAIN, DC, PNEUMONIA, PE, PNEUMOTHORAX. COURSE Treatment Treatment: SEE ORDERS. Consultation Consultation Comments: DR. GALEAS WILL ADMIT PATIENT. Education/Counseling Education/Counseling: Patient Educated On: Diagnosis and Needs for Follow Up ROR Labs Reviewed Laboratory Results Reviewed?: Yes Result Diagrams: 02/09/19 04:26 02/09/19 04:26 Laboratory: WBC 10.3 X10^3/uL (3.6-10.0) H 02/09/19 04:26 RBC 4.31 X10^6/uL (3.5-5.4) 02/09/19 04:26 Hgb 13.6 g/dL (12.0-16.0) D 02/09/19 04:26 Hct 39.3 % (36.0-47.0) 02/09/19 04:26 MCV 91.1 fL (80.0-100.0) 02/09/19 04:26 MCH 31.6 pg (27.0-34.0) 02/09/19 04:26 MCHC 34.7 g/dL (33.0-35.0) 02/09/19 04:26 RDW 12.3 % (11.6-16.5) 02/09/19 04:26 Plt Count 272 X10^3/uL (150.0-450.0) 02/09/19 04:26 MPV 6.9 fL (7.4-11.0) L 02/09/19 04:26 Neut % (Auto) 54.7 % (42.0-75.0) 02/09/19 04:26 Lymph % (Auto) 32.4 % (21.0-51.0) 02/09/19 04:26 [place] % (Auto) 10.2 % (0.0-13.0) 02/09/19 04:26 Eos % (Auto) 2.4 % (0.9-2.9) 02/09/19 04:26 Baso % (Auto) 0.3 % (0.2-1.0) 02/09/19 04:26 Neut # (Auto) 5.6 x10^3/uL (2.2-4.8) H 02/09/19 04:26 Lymph # (Auto) 3.3 X10^3/uL (1.3-2.9) H 02/09/19 04:26 [place] # (Auto) 1.0 x10^3/uL (0.3-0.8) H 02/09/19 04:26 Eos # (Auto) 0.2 x10^3/uL (0.0-0.2) 02/09/19 04:26 Baso # (Auto) 0.0 X10^3/uL (0.0-0.1) 02/09/19 04:26 Absolute Nucleated RBC 0.0 /100WBC 02/09/19 04:26 PT 12.5 SECONDS (11.8-14.3) 02/09/19 04:26 INR Target Range - 02/09/19 04:26 INR 0.97 (0.8-1.3) 02/09/19 04:26 APTT 25.3 SECONDS (22.9-36.5) 02/09/19 04:26 PTT Comment - 02/09/19 04:26 D-Dimer 191 ng/mL (0-400) 02/08/19 13:17 Sodium 141 mmol/L (136-145) 02/09/19 04:26 Corrected Sodium 142 mmol/L (136-145) 02/09/19 04:26 Potassium 4.0 mmol/L (3.5-5.1) 02/09/19 04:26 Chloride 106 mmol/L (98-107) 02/09/19 04:26 Carbon Dioxide 27.5 mmol/L (21-32) 02/09/19 04:26 BUN 17 mg/dL (7-18) 02/09/19 04:26 Creatinine 0.88 mg/dL (0.55-1.02) 02/09/19 04:26 Est GFR (MDRD) Af Amer > 60 (>60) 02/09/19 04:26 Est GFR (MDRD) Non-Af > 60 (>60) 02/09/19 04:26 Glucose 139 mg/dL (65-99) H 02/09/19 04:26 POC Glucose (mg/dL) 168 mg/dL (65-99) H 02/09/19 11:23 Calcium 8.5 mg/dL (8.5-10.1) 02/09/19 04:26 Corrected Calcium 9.3 mg/dL (8.5-10.1) 02/09/19 04:26 Magnesium 1.7 mg/dL (1.7-2.9) 02/09/19 04:26 Total Bilirubin 0.30 mg/dL (0.2-1.0) 02/09/19 04:26 AST 13 Units/L (15-37) L 02/09/19 04:26 ALT 21 Units/L (12-78) 02/09/19 04:26 Alkaline Phosphatase 83 Units/L (46-116) 02/09/19 04:26 Creatine Kinase 27 Units/L (26-192) 02/09/19 01:20 CK-MB (CK-2) < 1.0 ng/mL (0-4.0) 02/09/19 01:20 CK/CKMB % Calc 3.7 % (<4) 02/09/19 01:20 Troponin I < 0.02 ng/mL (0-1.5) 02/09/19 01:20 Total Protein 6.0 g/dL (6.4-8.2) L 02/09/19 04:26 Albumin 3.0 g/dL (3.4-5.0) L 02/09/19 04:26 Globulin 3.0 g/dL (2.5-4.5) 02/09/19 04:26 Albumin/Globulin Ratio 1.0 Ratio (1.1-2.1) L 02/09/19 04:26 Triglycerides 253 mg/dL (0-150) H 02/09/19 04:26 Cholesterol 200 mg/dL (0-200) 02/09/19 04:26 LDL Cholesterol, Calc 115 mg/dL (0-100) H 02/09/19 04:26 HDL Cholesterol 34 mg/dL (40-60) L 02/09/19 04:26 Cholesterol/HDL Ratio 5.9 (0.0-5.0) H 02/09/19 04:26 Amylase 37 Units/L (25-115) 02/08/19 13:17 Lipase 131 Units/L (73-393) 02/08/19 13:17 Specimen Type Clean catch urine 02/08/19 17:40 Urine Color Yellow (YELLOW) 02/08/19 17:40 Urine Appearance Clear (CLEAR) 02/08/19 17:40 Urine pH 5.0 (5.0 - 8.0) 02/08/19 17:40 Ur Specific [place] 1.020 (1.000-1.030) 02/08/19 17:40 Urine Protein Negative (NEGATIVE) 02/08/19 17:40 Urine Glucose (UA) Negative (NEGATIVE) 02/08/19 17:40 Urine Ketones Negative (NEGATIVE) 02/08/19 17:40 Urine Occult Blood 3+ (NEGATIVE) 02/08/19 17:40 Urine Nitrite Negative (NEGATIVE) 02/08/19 17:40 Urine Bilirubin Negative (NEGATIVE) 02/08/19 17:40 Urine Urobilinogen Normal (NORMAL) 02/08/19 17:40 Ur Leukocyte Esterase Negative (NEGATIVE) 02/08/19 17:40 Urine RBC 5-10 /HPF (0-3) A 02/08/19 17:40 Urine WBC None seen /HPF (0-5) 02/08/19 17:40 Ur Squamous Epith Cells Few /HPF (NEGATIVE) 02/08/19 17:40 Urine Bacteria Negative /HPF (NEGATIVE) 02/08/19 17:40 Ur Culture Indicated? No/not indicated 02/08/19 17:40 XRAY XRAY Interpreted by: Radiologist XRAY Findings: REPORT NOTED EKG Rate: 72 [place]: Normal Rhythm: NSR Block: None Hypertrophy: None ST: Nonsp (LOW VOLTAGE, T WAVE CHANGES.) Opioid Opioid Risk Tool Age (Morgan box if 16-45): No History of Preadolescent Sexual Abuse: No Psychological Disease: ADD Total: 0 Total Score Risk Category: Low Risk Copyright: Huber DENG predicting aberrant behaviors Diagnosis Discharge Problem: Chest pain Instructions Instructions: Nonspecific Chest Pain, [id number] Type 2 Diabetes Mellitus, Self Care, Adult, [id number] Flank Pain, Adult, [id number] Pain Medicine Instructions Forms: Patient Portal
[2019-02-08 17:29] LABS: CKMB % 3.7 % (<4); CREATINE KINASE 27 Units/L (26-192); CREATINE KINASE MB < 1.0 ng/mL (0-4.0); TROPONIN I < 0.02 ng/mL (0-1.5)
[2019-02-08 17:57] LABS: BILIRUBIN,URINE NEGATIVE (NEGATIVE); BLOOD/HEMOGLOBIN,URINE 3+ (NEGATIVE); GLUCOSE, URINE NEGATIVE (NEGATIVE); KETONES,URINE NEGATIVE (NEGATIVE); LEUKOCYTE ESTERASE ,URINE NEGATIVE (NEGATIVE); NITRITES,URINE NEGATIVE (NEGATIVE); PROTEIN,URINE NEGATIVE (NEGATIVE); UROBILINOGEN,URINE NORMAL (NORMAL)
[2019-02-08 18:00] LABS: APPEARANCE,URINE CLEAR (CLEAR); COLOR,URINE YELLOW (YELLOW)
[2019-02-08 18:03] LABS: BACTERIA,URINE NEGATIVE /HPF (NEGATIVE); SQUAMOUS EPITHELIAL CELL,UR FEW /HPF (NEGATIVE)
[2019-02-08] MEDS ORDERED: LEVAQUIN TAB 500 MG ONE (18:06)
[2019-02-08] MEDS ORDERED: NS 1000 ML 1,000 ML ONE (18:06)
[2019-02-08] MEDS ORDERED: TORADOL 30 MG VIAL ONE (18:07)
[2019-02-08] MEDS: NS 1000 ML 1,000 ML IV SCH ×2 (18:10→18:12)
[2019-02-08] MEDS: TORADOL 30 MG VIAL IVP SCH (18:11)
[2019-02-08] MEDS: LEVAQUIN TAB 500 MG PO SCH (18:12)
[2019-02-08] MEDS: DUONEB 0.5 MG/3 MG NEB SCH (20:30)
[2019-02-08] MEDS: PROTONIX TAB 40 MG PO SCH (20:43)
[2019-02-08] MEDS: AZELASTINE FLUTICASONE Intranasal SCH (20:45)
[2019-02-08] MEDS ORDERED: LAMICTAL TAB 100 MG PO SCH (21:00)
[2019-02-08] MEDS ORDERED: DUONEB 0.5 MG/3 MG NEB SCH (21:00)
[2019-02-08] MEDS ORDERED: PROPRANOLOL 60 MG PO SCH (21:00)
[2019-02-08] MEDS ORDERED: ZyrTEC TAB 10 MG PO SCH (21:00)
[2019-02-08 21:35] LABS: CKMB % 3.9 % (<4); CREATINE KINASE 26 Units/L (26-192); CREATINE KINASE MB < 1.0 ng/mL (0-4.0); TROPONIN I < 0.02 ng/mL (0-1.5)
[2019-02-09] MEDS: TORADOL 30 MG VIAL IVP SCH ×3 (00:09→13:40)
[2019-02-09] MEDS: NS 1000 ML 1,000 ML IV SCH ×2 (01:32→09:44)
[2019-02-09 02:06] LABS: CKMB % 3.7 % (<4); CREATINE KINASE 27 Units/L (26-192); CREATINE KINASE MB < 1.0 ng/mL (0-4.0); TROPONIN I < 0.02 ng/mL (0-1.5)
[2019-02-09] MEDS: DUONEB 0.5 MG/3 MG NEB SCH (05:10)
[2019-02-09 05:19] LABS: BASOPHILS % (AUTO) 0.3 % (0.2-1.0); EOSINOPHILS # (AUTO) 0.2 x10^3/uL (0.0-0.2); EOSINOPHILS % (AUTO) 2.4 % (0.9-2.9); HEMATOCRIT 39.3 % (36.0-47.0); LYMPHOCYTES # (AUTO) 3.3 X10^3/uL (1.3-2.9); LYMPHOCYTES % (AUTO) 32.4 % (21.0-51.0); MEAN CORPUSCULAR HEMOGLOBIN 31.6 pg (27.0-34.0); MEAN CORPUSCULAR HGB CONC 34.7 g/dL (33.0-35.0); MEAN CORPUSCULAR VOLUME 91.1 fL (80.0-100.0); MEAN PLATELET VOLUME 6.9 fL (7.4-11.0); MONOCYTES % (AUTO) 10.2 % (0.0-13.0); NEUTROPHILS # (AUTO) 5.6 x10^3/uL (2.2-4.8); NEUTROPHILS % (AUTO) 54.7 % (42.0-75.0); PLATELET COUNT 272 X10^3/uL (150.0-450.0); RED BLOOD COUNT 4.31 X10^6/uL (3.5-5.4); RED CELL DISTRIBUTION WIDTH 12.3 % (11.6-16.5); WHITE BLOOD COUNT 10.3 X10^3/uL (3.6-10.0)
[2019-02-09 05:21] LABS: HEMOGLOBIN 13.6 g/dL (12.0-16.0)
[2019-02-09 05:31] LABS: ALANINE AMINOTRANSFERASE 21 Units/L (12-78); ALKALINE PHOSPHATASE 83 Units/L (46-116); ASPARTATE AMINO TRANSFERASE 13 Units/L (15-37); BLOOD UREA NITROGEN 17 mg/dL (7-18); CALCIUM 8.5 mg/dL (8.5-10.1); CARBON DIOXIDE 27.5 mmol/L (21-32); CHLORIDE 106 mmol/L (98-107); CHOL/HDL RATIO 5.9 (0.0-5.0); CHOLESTEROL 200 mg/dL (0-200); COR CA(FOR HYPOALB) 9.3 mg/dL (8.5-10.1); COR NA(FOR HYPERGLY) 142 mmol/L (136-145); CREATININE 0.88 mg/dL (0.55-1.02); HDL CHOLESTEROL 34 mg/dL (40-60); MAGNESIUM 1.7 mg/dL (1.7-2.9); SODIUM 141 mmol/L (136-145); TRIGLYCERIDES 253 mg/dL (0-150); eGFR NON BLACK RACES > 60 (>60)
[2019-02-09] MEDS: PROTONIX TAB 40 MG PO SCH (08:53)
[2019-02-09] MEDS: LEVAQUIN TAB 500 MG PO SCH (08:54)
[2019-02-09] MEDS: AZELASTINE FLUTICASONE Intranasal SCH (08:54)
[2019-02-09] MEDS ORDERED: CULTURELLE PRO-WELL PROBIOTIC CAP PO SCH (09:00)
[2019-02-09] MEDS ORDERED: SINGULAIR TAB 10 MG PO SCH (09:00)
[2019-02-09] MEDS ORDERED: VSL#3 PO ONE (09:28)
[2019-02-09] MEDS ORDERED: VSL#3 PO SCH (10:00)
[2019-02-09 12:13] VITALS: BP 107/67
--- NOTE | 2019-02-09 13:01 | CT ---
CT abdomen and pelvis without contrast Indication: Left flank pain Comparison: None available Technique: Multiple axial images of the abdomen and pelvis were obtained from the lung bases to the pubic symphysis without the administration of IV contrast. Dose reduction techniques including automated exposure control (AEC) and adjustment of mA and kV were utilized. Findings: The visualized portions of the lung bases are unremarkable. The bony structures are grossly intact. Given limitations of a noncontrast examination no focal hepatic lesion. Prior cholecystectomy. Bile ducts are normal in caliber. The spleen, pancreas and adrenal glands are normal. Neither kidney demonstrates evidence of nephrolithiasis, hydronephrosis or mass. Urinary bladder is normal. No pelvic or adnexal mass. The rectum, colon and appendix are normal. Upper GI tract demonstrates no abnormality. Review of bone windows demonstrates no acute osseous abnormality. Abdominal aorta is normal in caliber. No free fluid or adenopathy within the abdomen or pelvis. Impression: No acute inflammatory process within the abdomen or pelvis given limitations of a noncontrast examination. Specifically, there is no nephrolithiasis or hydronephrosis within either kidney. Reported By:
== END 2019-02-09 15:45 | disposition home or self-care (01) ==
LOC: ER 12:50 → MED/SURG 12:50
PROVIDERS: ADMIT Internal Medicine; ATTEND Internal Medicine
DX: E78.2 Mixed hyperlipidemia; I10 Essential (primary) hypertension; E11.65 Type 2 diabetes mellitus with hyperglycemia; R10.84 Generalized abdominal pain; R07.89 Other chest pain; R53.83 Other fatigue; M79.604 Pain in right leg; M79.605 Pain in left leg; R94.31 Abnormal electrocardiogram [ECG] [EKG]
CPT/HCPCS: 36415; 71010; 71045; 71250; 74176; 80053; 80061; 81001; 82150; 82550; 82553; 83690; 83735; 84484; 85025; 85378; 85610; 85730; 93005; 93970; 94640; 94760; 96365; 96367; 96374; 96375; 99284; A4216; G0378; J1885; J2175; J2405; J7030; J7620

== ENCOUNTER 2019-05-30 16:01 | Inpatient (IN) ==
[2019-05-30] MEDS ORDERED: NS 1/2 1000 ML IV 1,000 ML IV ONE (17:29)
[2019-05-30] MEDS: VSL#3 PO SCH (17:35)
[2019-05-30] MEDS: ROBITUSSIN DM PO SCH ×2 (17:35→21:05)
[2019-05-30] MEDS: NS 1/2 1000 ML IV 1,000 ML IV SCH (17:39)
[2019-05-30 17:42] LABS: BASOPHILS # (AUTO) 0.1 X10^3/uL (0.0-0.1); BASOPHILS % (AUTO) 0.7 % (0.2-1.0); EOSINOPHILS # (AUTO) 0.1 x10^3/uL (0.0-0.2); EOSINOPHILS % (AUTO) 0.6 % (0.9-2.9); HEMATOCRIT 46.4 % (36.0-47.0); HEMOGLOBIN 16.3 g/dL (12.0-16.0); LYMPHOCYTES # (AUTO) 1.5 X10^3/uL (1.3-2.9); LYMPHOCYTES % (AUTO) 15.6 % (21.0-51.0); MEAN CORPUSCULAR HEMOGLOBIN 31.6 pg (27.0-34.0); MEAN CORPUSCULAR HGB CONC 35.1 g/dL (33.0-35.0); MEAN CORPUSCULAR VOLUME 90.2 fL (80.0-100.0); MEAN PLATELET VOLUME 6.6 fL (7.4-11.0); MONOCYTES # (AUTO) 1.2 x10^3/uL (0.3-0.8); MONOCYTES % (AUTO) 12.1 % (0.0-13.0); NEUTROPHILS # (AUTO) 6.8 x10^3/uL (2.2-4.8); PLATELET COUNT 340 X10^3/uL (150.0-450.0); RED BLOOD COUNT 5.14 X10^6/uL (3.5-5.4); RED CELL DISTRIBUTION WIDTH 13.1 % (11.6-16.5); WHITE BLOOD COUNT 9.6 X10^3/uL (3.6-10.0)
[2019-05-30 17:47] VITALS: BMI 33.0
[2019-05-30 17:51] LABS: ALANINE AMINOTRANSFERASE 35 Units/L (12-78); ALBUMIN 3.8 g/dL (3.4-5.0); ALKALINE PHOSPHATASE 99 Units/L (46-116); ASPARTATE AMINO TRANSFERASE 19 Units/L (15-37); BLOOD UREA NITROGEN 18 mg/dL (7-18); CALCIUM 8.9 mg/dL (8.5-10.1); CARBON DIOXIDE 24.5 mmol/L (21-32); CHLORIDE 102 mmol/L (98-107); COR NA(FOR HYPERGLY) 139 mmol/L (136-145); CREATININE 1.09 mg/dL (0.55-1.02); SODIUM 138 mmol/L (136-145); TOTAL PROTEIN 7.6 g/dL (6.4-8.2); eGFR NON BLACK RACES 57 (>60)
[2019-05-30] MEDS: DUONEB 0.5 MG/3 MG (3 mL) NEB SCH ×2 (18:19→20:45)
[2019-05-30] MEDS: LEVAQUIN PREMIX IV 750 MG 750 MG/150 ML BAG IV SCH (19:47)
[2019-05-30] MEDS: FORTAZ or TAZICEF VIAL INJ 1 G in NS 100 ML IV + SPIKE MINIBAG* 100 ML IV SCH (21:05)
[2019-05-31] MEDS: FORTAZ or TAZICEF VIAL INJ 1 G in NS 100 ML IV + SPIKE MINIBAG* 100 ML IV SCH ×3 (05:13→21:05)
[2019-05-31 05:37] LABS: BASOPHILS % (AUTO) 0.3 % (0.2-1.0); EOSINOPHILS # (AUTO) 0.1 x10^3/uL (0.0-0.2); EOSINOPHILS % (AUTO) 1.5 % (0.9-2.9); HEMATOCRIT 42.5 % (36.0-47.0); LYMPHOCYTES # (AUTO) 2.3 X10^3/uL (1.3-2.9); LYMPHOCYTES % (AUTO) 29.6 % (21.0-51.0); MEAN CORPUSCULAR HEMOGLOBIN 31.5 pg (27.0-34.0); MEAN CORPUSCULAR HGB CONC 35.2 g/dL (33.0-35.0); MEAN CORPUSCULAR VOLUME 89.6 fL (80.0-100.0); MEAN PLATELET VOLUME 6.3 fL (7.4-11.0); MONOCYTES # (AUTO) 1.2 x10^3/uL (0.3-0.8); MONOCYTES % (AUTO) 16.2 % (0.0-13.0); NEUTROPHILS % (AUTO) 52.4 % (42.0-75.0); PLATELET COUNT 295 X10^3/uL (150.0-450.0); RED BLOOD COUNT 4.75 X10^6/uL (3.5-5.4); RED CELL DISTRIBUTION WIDTH 13.1 % (11.6-16.5); WHITE BLOOD COUNT 7.6 X10^3/uL (3.6-10.0)
[2019-05-31 05:49] LABS: ALANINE AMINOTRANSFERASE 32 Units/L (12-78); ALBUMIN 3.2 g/dL (3.4-5.0); ALKALINE PHOSPHATASE 83 Units/L (46-116); ASPARTATE AMINO TRANSFERASE 15 Units/L (15-37); BLOOD UREA NITROGEN 16 mg/dL (7-18); CALCIUM 8.2 mg/dL (8.5-10.1); CARBON DIOXIDE 26.2 mmol/L (21-32); CHLORIDE 105 mmol/L (98-107); COR CA(FOR HYPOALB) 8.8 mg/dL (8.5-10.1); CREATININE 0.91 mg/dL (0.55-1.02); SODIUM 140 mmol/L (136-145); TOTAL PROTEIN 6.7 g/dL (6.4-8.2); eGFR NON BLACK RACES > 60 (>60)
[2019-05-31] MEDS ORDERED: NS 1/2 1000 ML IV 1,000 ML IV ONE ×2 (06:09→19:07)
[2019-05-31] MEDS: NS 1/2 1000 ML IV 1,000 ML IV SCH ×2 (06:11→20:35)
--- NOTE | 2019-05-31 07:40 | RAD ---
HISTORYSOBSTUDYCHEST, 1 VIEWCOMPARISONChest film May 30, 2019FINDINGSThe trachea is midline. The cardiac silhouette is unremarkable . The lungs are clear without focal infiltrate or effusion. The bony thorax is unremarkable. There is no interval change compared to the recent film May 30, 2019.IMPRESSIONNo acute cardiopulmonary disease.Electronically signed by: IKE CHEEMA (May 31, 2019 07:39:36)
[2019-05-31] MEDS: VSL#3 PO SCH (08:14)
[2019-05-31] MEDS: LEVAQUIN PREMIX IV 750 MG 750 MG/150 ML BAG IV SCH (08:15)
[2019-05-31] MEDS: ROBITUSSIN DM PO SCH ×4 (08:15→20:34)
[2019-05-31] MEDS: DUONEB 0.5 MG/3 MG (3 mL) NEB SCH ×4 (08:28→20:23)
[2019-05-31] MEDS: AZELASTINE FLUTICASONE ENOSTRIL SCH ×3 (09:36→20:34)
[2019-05-31] MEDS: MAXZIDE 37.5/25 MG PO SCH (09:36)
[2019-05-31] MEDS: PROTONIX TAB 40 MG PO SCH ×2 (09:36→20:34)
[2019-05-31] MEDS: SINGULAIR TAB 10 MG PO SCH (10:00)
--- NOTE | 2019-05-31 10:44 | DR.UPDATE ---
H&P Update History and Physical Update: History and Physical reviewed and patient examined. Changes noted: Yes with the following: WAS SEEN IN THE OFFICE FOR COMPLAINTS OF A PERSISTENT, PRODUCTIVE COUGH. SHE HAS BEEN TAKING AUGMENTIN 875/125MG PO BID FOR THE PAST SEVEN DAYS WITHOUT IMPROVEMENT IN SYMPTOMS. WE ADMITTED HER FOR FURTHER EVALUATION AND TREATMENT OF BRONCHOPNEUMONIA. ON ADMISSION, WE WILL OBTAIN LABS, CHEST XRAY, SPUTUM, AND BLOOD CULTURES. WE WILL START IV FORTAZ, IV LEVAQUIN, RESPIRATORY TX, AND SUPPLEMENTAL OXYGEN. OTHERWISE, WE WILL CONTINUE TO MONITOR. Prescription drug monitoring program results: PDMP was not reviewed H&P Reviewed: Yes Patient was examined?: Yes
[2019-05-31] MEDS: PULMICORT NEB TX 0.5 MG NEB SCH (20:23)
[2019-05-31] MEDS: LAMICTAL TAB 100 MG PO SCH (20:34)
[2019-05-31] MEDS: PROPRANOLOL 60 MG PO SCH (20:34)
[2019-05-31] MEDS: ZyrTEC TAB 10 MG PO SCH (20:34)
[2019-05-31] MEDS ORDERED: SINGULAIR TAB 10 MG PO SCH (21:00)
--- NOTE | 2019-05-31 21:14 | PCM.PROG ---
Progress Note - Progress Note for Day of Date of Exam: 05/31/19 - Subjective Subjective: WAS ADMITTED FOR BRONCHOPNEUMONIA. TODAY, SHE IS ALERT AND ORIENTED, LYING IN BED ON MORNING ROUNDS. SHE CONTINUES WITH A NON-PRODUCTIVE COUGH AND SHORTNESS OF BREATH. ON EXAMINATION, HEART IS REGULAR IN RATE AND RHYTHM. BILATERAL LUNGS ARE NOTED WITH SCATTERED WHEEZING. ABDOMEN IS FLAT, SOFT, AND NON-TENDER WITH NORMAL BOWEL SOUNDS NOTED IN ALL QUADRANTS. HER VITALS THIS MORNING ARE: 98.1-87-20-94%-116/78. LABS WERE OBTAINED. ABNORMAL LAB VALUES INCLUDE THE FOLLOWING: CHLORIDE 110, CALCIUM 8.2. BLOOD CULTURES ARE PENDING. A CHEST XRAY WAS OBTAINED ON ADMISSION AND REVEALED: NO ACUTE CARDIOPULMONARY DISEASE. SHE IS CURRENTLY RECEIVING IV LEVAQUIN, IV FORTAZ, RESPIRATORY TX, SUPPLEMENTAL OXYGEN, AND HOME MEDICATIONS WERE RESUMED. WE WILL CONTINUE WITH CURRENT PLAN OF CARE TODAY. OTHERWISE, WE WILL FOLLOW UP WITH AM LABS AND CONTINUE TO MONITOR. - Past Medical Family Social History Past Med/Fam/Surg Hx: No changes since H&P Allergies: Allergies povidone Allergy (Intermediate, Verified 05/30/19 17:27) hydrocodone Allergy (Mild, Verified 05/30/19 17:27) hallucination latex Allergy (Mild, Verified 05/30/19 17:27) morphine Allergy (Mild, Verified 05/30/19 17:27) phenyltoloxamine Allergy (Mild, Verified 05/30/19 17:27) hallucination Sulfa (Sulfonamide Antibiotics) [SULFA] Allergy (Unknown, Verified 05/30/19 17:27) povidone-iodine [From Betadine] Allergy (Verified 05/30/19 17:27) IVP DYE Allergy (Uncoded 05/30/19 17:27) - Review of Systems ROS: No change since H&P - Vital Signs and I&O's Vital Signs: Temperature 98.3 F Pulse Rate [Left Brachial] 86 Pulse Rate 101 Respiratory Rate 18 Blood Pressure [Right Arm] 116/78 Blood Pressure [Left Arm] 108/63 Blood Pressure 130/87 O2 Sat by Pulse Oximetry 95 Intake and Output: Intake & Output 05/29/19 05/30/19 05/31/19 06/01/19 11:59 11:59 11:59 11:59 Intake Total 2040 / 2040 500 / 500 Balance 2040 / 2040 500 / 500 - Physical Exam Oriented: Normal Eyes: Normal Ear: Normal Nose: Normal Throat: Normal Respiratory: Generalized, Diminished, Wheezes Cardiovascular: Normal : Normal Auscultation: Bowel Sounds: Normal Palpation: Normal Tenderness: Normal Skin: Normal Musculoskeletal: Normal Psychiatric: Normal Mood Description: Calm Affect: Normal Speech Pattern: Clear, Appropriate - Laboratory and Diagnostics Result Diagrams: 05/31/19 04:55 05/31/19 04:55 Labs: Laboratory WBC 7.6 X10^3/uL (3.6-10.0) 05/31/19 04:55 RBC 4.75 X10^6/uL (3.5-5.4) 05/31/19 04:55 Hgb 15.0 g/dL (12.0-16.0) 05/31/19 04:55 Hct 42.5 % (36.0-47.0) 05/31/19 04:55 MCV 89.6 fL (80.0-100.0) 05/31/19 04:55 MCH 31.5 pg (27.0-34.0) 05/31/19 04:55 MCHC 35.2 g/dL (33.0-35.0) H 05/31/19 04:55 RDW 13.1 % (11.6-16.5) 05/31/19 04:55 Plt Count 295 X10^3/uL (150.0-450.0) 05/31/19 04:55 MPV 6.3 fL (7.4-11.0) L 05/31/19 04:55 Neut % (Auto) 52.4 % (42.0-75.0) 05/31/19 04:55 Lymph % (Auto) 29.6 % (21.0-51.0) 05/31/19 04:55 [place] % (Auto) 16.2 % (0.0-13.0) H 05/31/19 04:55 Eos % (Auto) 1.5 % (0.9-2.9) 05/31/19 04:55 Baso % (Auto) 0.3 % (0.2-1.0) 05/31/19 04:55 Neut # (Auto) 4.0 x10^3/uL (2.2-4.8) 05/31/19 04:55 Lymph # (Auto) 2.3 X10^3/uL (1.3-2.9) 05/31/19 04:55 [place] # (Auto) 1.2 x10^3/uL (0.3-0.8) H 05/31/19 04:55 Eos # (Auto) 0.1 x10^3/uL (0.0-0.2) 05/31/19 04:55 Baso # (Auto) 0.0 X10^3/uL (0.0-0.1) 05/31/19 04:55 Absolute Nucleated RBC 0.1 /100WBC 05/31/19 04:55 Sodium 140 mmol/L (136-145) 05/31/19 04:55 Corrected Sodium TNP 05/31/19 04:55 Potassium 4.0 mmol/L (3.5-5.1) 05/31/19 04:55 Chloride 105 mmol/L (98-107) 05/31/19 04:55 Carbon Dioxide 26.2 mmol/L (21-32) 05/31/19 04:55 BUN 16 mg/dL (7-18) 05/31/19 04:55 Creatinine 0.91 mg/dL (0.55-1.02) 05/31/19 04:55 Est GFR (MDRD) Af Amer > 60 (>60) 05/31/19 04:55 Est GFR (MDRD) Non-Af > 60 (>60) 05/31/19 04:55 Glucose 110 mg/dL (65-99) H 05/31/19 04:55 POC Glucose (mg/dL) 99 mg/dL (65-99) 05/31/19 11:43 Calcium 8.2 mg/dL (8.5-10.1) L 05/31/19 04:55 Corrected Calcium 8.8 mg/dL (8.5-10.1) 05/31/19 04:55 Total Bilirubin 0.30 mg/dL (0.2-1.0) 05/31/19 04:55 AST 15 Units/L (15-37) 05/31/19 04:55 ALT 32 Units/L (12-78) 05/31/19 04:55 Alkaline Phosphatase 83 Units/L (46-116) 05/31/19 04:55 Total Protein 6.7 g/dL (6.4-8.2) 05/31/19 04:55 Albumin 3.2 g/dL (3.4-5.0) L 05/31/19 04:55 Globulin 3.5 g/dL (2.5-4.5) 05/31/19 04:55 Albumin/Globulin Ratio 0.9 Ratio (1.1-2.1) L 05/31/19 04:55 - Plan (1) Bronchopneumonia Status: Acute Plan: IV FORTAZ, IV LEVAQUIN, RESPIRATORY TX, SUPPLEMENTAL TX, CONTINUE TO MONITOR
[2019-06-01] MEDS: FORTAZ or TAZICEF VIAL INJ 1 G in NS 100 ML IV + SPIKE MINIBAG* 100 ML IV SCH ×4 (05:00→21:00)
[2019-06-01 05:24] LABS: BASOPHILS % (AUTO) 0.5 % (0.2-1.0); EOSINOPHILS # (AUTO) 0.3 x10^3/uL (0.0-0.2); EOSINOPHILS % (AUTO) 3.8 % (0.9-2.9); HEMATOCRIT 43.1 % (36.0-47.0); HEMOGLOBIN 15.3 g/dL (12.0-16.0); LYMPHOCYTES # (AUTO) 2.7 X10^3/uL (1.3-2.9); LYMPHOCYTES % (AUTO) 34.9 % (21.0-51.0); MEAN CORPUSCULAR HEMOGLOBIN 31.6 pg (27.0-34.0); MEAN CORPUSCULAR HGB CONC 35.4 g/dL (33.0-35.0); MEAN CORPUSCULAR VOLUME 89.3 fL (80.0-100.0); MEAN PLATELET VOLUME 6.2 fL (7.4-11.0); MONOCYTES # (AUTO) 1.1 x10^3/uL (0.3-0.8); MONOCYTES % (AUTO) 14.1 % (0.0-13.0); NEUTROPHILS # (AUTO) 3.6 x10^3/uL (2.2-4.8); NEUTROPHILS % (AUTO) 46.7 % (42.0-75.0); PLATELET COUNT 291 X10^3/uL (150.0-450.0); RED BLOOD COUNT 4.82 X10^6/uL (3.5-5.4); RED CELL DISTRIBUTION WIDTH 13.2 % (11.6-16.5); WHITE BLOOD COUNT 7.7 X10^3/uL (3.6-10.0)
[2019-06-01 05:32] LABS: ALANINE AMINOTRANSFERASE 31 Units/L (12-78); ALBUMIN 3.2 g/dL (3.4-5.0); ALKALINE PHOSPHATASE 85 Units/L (46-116); ASPARTATE AMINO TRANSFERASE 17 Units/L (15-37); BLOOD UREA NITROGEN 14 mg/dL (7-18); CALCIUM 8.6 mg/dL (8.5-10.1); CARBON DIOXIDE 27.9 mmol/L (21-32); CHLORIDE 103 mmol/L (98-107); COR CA(FOR HYPOALB) 9.2 mg/dL (8.5-10.1); COR NA(FOR HYPERGLY) 141 mmol/L (136-145); CREATININE 0.92 mg/dL (0.55-1.02); SODIUM 140 mmol/L (136-145); TOTAL PROTEIN 6.8 g/dL (6.4-8.2); eGFR NON BLACK RACES > 60 (>60)
[2019-06-01] MEDS: SINGULAIR TAB 10 MG PO SCH (08:22)
[2019-06-01] MEDS: MAXZIDE 37.5/25 MG PO SCH (08:22)
[2019-06-01] MEDS: PROTONIX TAB 40 MG PO SCH ×2 (08:22→20:51)
[2019-06-01] MEDS: VSL#3 PO SCH (08:22)
--- NOTE | 2019-06-01 08:22 | RAD ---
HISTORYSOBSTUDYCHEST, 1 VIEWCOMPARISONChest film May 31, 2019.FINDINGSThe trachea is midline. The cardiac silhouette is unremarkable . The lungs are clear without focal infiltrate or effusion. The bony thorax is unremarkable. When compared to the recent film of 6 May 31, 2019 there is no interval change.IMPRESSIONNo acute cardiopulmonary disease.Electronically signed by: IKE CHEEMA (Jun 01, 2019 08:20:33)
[2019-06-01] MEDS: LEVAQUIN PREMIX IV 750 MG 750 MG/150 ML BAG IV SCH (08:23)
[2019-06-01] MEDS: PULMICORT NEB TX 0.5 MG NEB SCH ×2 (08:41→21:30)
[2019-06-01] MEDS: DUONEB 0.5 MG/3 MG (3 mL) NEB SCH ×5 (08:41→21:30)
[2019-06-01] MEDS: TYLENOL 325 MG TAB PO PRN (08:53)
[2019-06-01] MEDS: ROBITUSSIN DM PO SCH ×4 (08:55→20:51)
[2019-06-01] MEDS: AZELASTINE FLUTICASONE ENOSTRIL SCH ×2 (08:55→20:51)
--- NOTE | 2019-06-01 10:04 | PCM.PROG ---
Progress Note - Progress Note for Day of Date of Exam: 06/01/19 - Subjective Subjective: WAS ADMITTED FOR BRONCHOPNEUMONIA. TODAY, SHE IS ALERT AND ORIENTED, LYING IN BED ON MORNING ROUNDS. SHE CONTINUES WITH A NON-PRODUCTIVE COUGH AND SHORTNESS OF BREATH. ON EXAMINATION, HEART IS REGULAR IN RATE AND RHYTHM. BILATERAL LUNGS ARE NOTED WITH SCATTERED WHEEZING. ABDOMEN IS FLAT, SOFT, AND NON-TENDER WITH NORMAL BOWEL SOUNDS NOTED IN ALL QUADRANTS. HER VITALS THIS MORNING ARE: 97.8-86-18-94%-119/88. LABS WERE OBTAINED. ABNORMAL LAB VALUES INCLUDE THE FOLLOWING: GLUCOSE 128, ALBUMIN 3.2. BLOOD CULTURES ARE PENDING. A CHEST XRAY WAS OBTAINED ON ADMISSION AND REVEALED: NO ACUTE CARDIOPULMONARY DISEASE. SHE IS CURRENTLY RECEIVING IV LEVAQUIN, IV FORTAZ, RESPIRATORY TX, S UPPLEMENTAL OXYGEN, AND HOME MEDICATIONS WERE RESUMED. WE WILL CONTINUE WITH CURRENT PLAN OF CARE TODAY. OTHERWISE, WE WILL FOLLOW UP WITH AM LABS AND CONTINUE TO MONITOR. - Past Medical Family Social History Past Med/Fam/Surg Hx: No changes since H&P Allergies: Allergies povidone Allergy (Intermediate, Verified 05/30/19 17:27) hydrocodone Allergy (Mild, Verified 05/30/19 17:27) hallucination latex Allergy (Mild, Verified 05/30/19 17:27) morphine Allergy (Mild, Verified 05/30/19 17:27) phenyltoloxamine Allergy (Mild, Verified 05/30/19 17:27) hallucination Sulfa (Sulfonamide Antibiotics) [SULFA] Allergy (Unknown, Verified 05/30/19 17:27) povidone-iodine [From Betadine] Allergy (Verified 05/30/19 17:27) IVP DYE Allergy (Uncoded 05/30/19 17:27) - Review of Systems ROS: No change since H&P - Vital Signs and I&O's Vital Signs: Temperature 97.8 F Pulse Rate [Left Brachial] 86 Pulse Rate 94 Respiratory Rate 20 Blood Pressure [Right Arm] 119/88 Blood Pressure [Left Arm] 108/63 Blood Pressure 130/87 O2 Sat by Pulse Oximetry 96 Intake and Output: Intake & Output 05/29/19 05/30/19 05/31/19 06/01/19 11:59 11:59 11:59 11:59 Intake Total 2039 / 2289 Balance 2039 - Physical Exam Oriented: Normal Eyes: Normal Ear: Normal Nose: Normal Throat: Normal Respiratory: Generalized, Diminished, Wheezes Cardiovascular: Normal : Normal Auscultation: Bowel Sounds: Normal Tenderness: Normal Skin: Normal Musculoskeletal: Normal Psychiatric: Normal Mood Description: Calm Affect: Normal Speech Pattern: Clear, Appropriate - Laboratory and Diagnostics Result Diagrams: 06/01/19 04:58 06/01/19 04:58 Labs: Laboratory WBC 7.7 X10^3/uL (3.6-10.0) 06/01/19 04:58 RBC 4.82 X10^6/uL (3.5-5.4) 06/01/19 04:58 Hgb 15.3 g/dL (12.0-16.0) 06/01/19 04:58 Hct 43.1 % (36.0-47.0) 06/01/19 04:58 MCV 89.3 fL (80.0-100.0) 06/01/19 04:58 MCH 31.6 pg (27.0-34.0) 06/01/19 04:58 MCHC 35.4 g/dL (33.0-35.0) H 06/01/19 04:58 RDW 13.2 % (11.6-16.5) 06/01/19 04:58 Plt Count 291 X10^3/uL (150.0-450.0) 06/01/19 04:58 MPV 6.2 fL (7.4-11.0) L 06/01/19 04:58 Neut % (Auto) 46.7 % (42.0-75.0) 06/01/19 04:58 Lymph % (Auto) 34.9 % (21.0-51.0) 06/01/19 04:58 [place] % (Auto) 14.1 % (0.0-13.0) H 06/01/19 04:58 Eos % (Auto) 3.8 % (0.9-2.9) H 06/01/19 04:58 Baso % (Auto) 0.5 % (0.2-1.0) 06/01/19 04:58 Neut # (Auto) 3.6 x10^3/uL (2.2-4.8) 06/01/19 04:58 Lymph # (Auto) 2.7 X10^3/uL (1.3-2.9) 06/01/19 04:58 [place] # (Auto) 1.1 x10^3/uL (0.3-0.8) H 06/01/19 04:58 Eos # (Auto) 0.3 x10^3/uL (0.0-0.2) H 06/01/19 04:58 Baso # (Auto) 0.0 X10^3/uL (0.0-0.1) 06/01/19 04:58 Absolute Nucleated RBC 0.1 /100WBC 06/01/19 04:58 Sodium 140 mmol/L (136-145) 06/01/19 04:58 Corrected Sodium 141 mmol/L (136-145) 06/01/19 04:58 Potassium 3.9 mmol/L (3.5-5.1) 06/01/19 04:58 Chloride 103 mmol/L (98-107) 06/01/19 04:58 Carbon Dioxide 27.9 mmol/L (21-32) 06/01/19 04:58 BUN 14 mg/dL (7-18) 06/01/19 04:58 Creatinine 0.92 mg/dL (0.55-1.02) 06/01/19 04:58 Est GFR (MDRD) Af Amer > 60 (>60) 06/01/19 04:58 Est GFR (MDRD) Non-Af > 60 (>60) 06/01/19 04:58 Glucose 128 mg/dL (65-99) H 06/01/19 04:58 POC Glucose (mg/dL) 99 mg/dL (65-99) 05/31/19 11:43 Calcium 8.6 mg/dL (8.5-10.1) 06/01/19 04:58 Corrected Calcium 9.2 mg/dL (8.5-10.1) 06/01/19 04:58 Total Bilirubin 0.20 mg/dL (0.2-1.0) 06/01/19 04:58 AST 17 Units/L (15-37) 06/01/19 04:58 ALT 31 Units/L (12-78) 06/01/19 04:58 Alkaline Phosphatase 85 Units/L (46-116) 06/01/19 04:58 Total Protein 6.8 g/dL (6.4-8.2) 06/01/19 04:58 Albumin 3.2 g/dL (3.4-5.0) L 06/01/19 04:58 Globulin 3.6 g/dL (2.5-4.5) 06/01/19 04:58 Albumin/Globulin Ratio 0.9 Ratio (1.1-2.1) L 06/01/19 04:58 - Plan (1) Bronchopneumonia Status: Acute Plan: IV FORTAZ, IV LEVAQUIN, RESPIRATORY TX, SUPPLEMENTAL TX, CONTINUE TO MONITOR
[2019-06-01] MEDS: FLONASE NASAL SPRAY ENOSTRIL SCH (11:28)
[2019-06-01] MEDS: NS 1/2 1000 ML IV 1,000 ML IV SCH ×2 (11:29→20:54)
[2019-06-01] MEDS: LOVENOX INJ 40 MG SYR SC SCH (18:59)
[2019-06-01] MEDS ORDERED: NS 1/2 1000 ML IV 1,000 ML IV ONE (19:16)
[2019-06-01] MEDS: ZyrTEC TAB 10 MG PO SCH (20:51)
[2019-06-01] MEDS: PROPRANOLOL 60 MG PO SCH (20:52)
[2019-06-01] MEDS: LAMICTAL TAB 100 MG PO SCH (20:52)
[2019-06-02] MEDS: NS 1/2 1000 ML IV 1,000 ML IV SCH ×2 (05:02→14:24)
[2019-06-02] MEDS: FORTAZ or TAZICEF VIAL INJ 1 G in NS 100 ML IV + SPIKE MINIBAG* 100 ML IV SCH ×3 (05:02→21:32)
[2019-06-02 05:41] LABS: BASOPHILS % (AUTO) 0.4 % (0.2-1.0); EOSINOPHILS # (AUTO) 0.3 x10^3/uL (0.0-0.2); EOSINOPHILS % (AUTO) 3.3 % (0.9-2.9); HEMATOCRIT 44.8 % (36.0-47.0); HEMOGLOBIN 15.6 g/dL (12.0-16.0); LYMPHOCYTES # (AUTO) 3.4 X10^3/uL (1.3-2.9); LYMPHOCYTES % (AUTO) 35.7 % (21.0-51.0); MEAN CORPUSCULAR HEMOGLOBIN 31.4 pg (27.0-34.0); MEAN CORPUSCULAR HGB CONC 34.9 g/dL (33.0-35.0); MEAN CORPUSCULAR VOLUME 89.9 fL (80.0-100.0); MEAN PLATELET VOLUME 6.3 fL (7.4-11.0); MONOCYTES # (AUTO) 0.8 x10^3/uL (0.3-0.8); MONOCYTES % (AUTO) 8.7 % (0.0-13.0); NEUTROPHILS % (AUTO) 51.9 % (42.0-75.0); PLATELET COUNT 293 X10^3/uL (150.0-450.0); RED BLOOD COUNT 4.99 X10^6/uL (3.5-5.4); RED CELL DISTRIBUTION WIDTH 12.9 % (11.6-16.5); WHITE BLOOD COUNT 9.6 X10^3/uL (3.6-10.0)
[2019-06-02 05:57] LABS: ALANINE AMINOTRANSFERASE 32 Units/L (12-78); ALBUMIN 3.3 g/dL (3.4-5.0); ALKALINE PHOSPHATASE 86 Units/L (46-116); ASPARTATE AMINO TRANSFERASE 15 Units/L (15-37); BLOOD UREA NITROGEN 13 mg/dL (7-18); CALCIUM 8.7 mg/dL (8.5-10.1); CHLORIDE 102 mmol/L (98-107); COR CA(FOR HYPOALB) 9.3 mg/dL (8.5-10.1); COR NA(FOR HYPERGLY) 140 mmol/L (136-145); CREATININE 0.91 mg/dL (0.55-1.02); SODIUM 139 mmol/L (136-145); TOTAL PROTEIN 6.8 g/dL (6.4-8.2); eGFR NON BLACK RACES > 60 (>60)
--- NOTE | 2019-06-02 08:23 | RAD ---
HISTORYSOBSTUDYCHEST, 1 VIEWCOMPARISONDecember 18 2FINDINGSThe trachea is midline. The cardiac silhouette is mildly enlarged. The lungs are clear without focal infiltrate or effusion.IMPRESSIONMild cardiomegaly.Electronically signed by: TANISHA STOKES (Jun 02, 2019 08:21:28)
[2019-06-02] MEDS: VSL#3 PO SCH (09:01)
[2019-06-02] MEDS: MAXZIDE 37.5/25 MG PO SCH (09:02)
[2019-06-02] MEDS: LOVENOX INJ 40 MG SYR SC SCH (09:02)
[2019-06-02] MEDS: PROTONIX TAB 40 MG PO SCH ×2 (09:04→21:28)
[2019-06-02] MEDS: ROBITUSSIN DM PO SCH ×4 (09:04→21:29)
[2019-06-02] MEDS: LEVAQUIN PREMIX IV 750 MG 750 MG/150 ML BAG IV SCH (09:07)
[2019-06-02] MEDS: SINGULAIR TAB 10 MG PO SCH (09:07)
[2019-06-02] MEDS: AZELASTINE FLUTICASONE ENOSTRIL SCH ×3 (09:08→21:36)
[2019-06-02] MEDS: FLONASE NASAL SPRAY ENOSTRIL SCH (09:08)
[2019-06-02] MEDS: PULMICORT NEB TX 0.5 MG NEB SCH ×2 (09:48→20:25)
[2019-06-02] MEDS: DUONEB 0.5 MG/3 MG (3 mL) NEB SCH ×4 (09:48→20:25)
--- NOTE | 2019-06-02 10:13 | PCM.PROG ---
Progress Note - Progress Note for Day of Date of Exam: 06/02/19 - Subjective Subjective: WAS ADMITTED FOR BRONCHOPNEUMONIA. TODAY, SHE IS ALERT AND ORIENTED, LYING IN BED ON MORNING ROUNDS. SHE CONTINUES WITH A NON-PRODUCTIVE COUGH AND SHORTNESS OF BREATH. SHE REPORTS THAT COUGH SEEMS WORSE TODAY. ON EXAMINATION, HEART IS REGULAR IN RATE AND RHYTHM. BILATERAL LUNGS ARE NOTED WITH SCATTERED WHEEZING. ABDOMEN IS FLAT, SOFT, AND NON-TENDER WITH NORMAL BOWEL SOUNDS NOTED IN ALL QUADRANTS. HER VITALS THIS MORNING ARE: 98.1-86-18-96%-119/75. LABS WERE OBTAINED. ABNORMAL LAB VALUES INCLUDE THE FOLLOWING: GLUCOSE 127, ALBUMIN 3.3. BLOOD CULTURES ARE PENDING. A CHEST XRAY WAS OBTAINED ON ADMISSION AND REVEALED: MILD CARDIOMEGALY. SHE IS CURRENTLY RECEIVING IV LEVAQUIN, IV FORTAZ, RESPIRATORY TX, SUPPLEMENTAL OXYGEN, AND HOME MEDICATIONS WERE RESUMED. WE WILL CONTINUE WITH CURRENT PLAN OF CARE TODAY AND ADD SOLU-MEDROL 40MG IV Q8H. OTHERWISE, WE WILL FOLLOW UP WITH AM LABS AND CONTINUE TO MONITOR. - Past Medical Family Social History Past Med/Fam/Surg Hx: No changes since H&P Allergies: Allergies povidone Allergy (Intermediate, Verified 05/30/19 17:27) hydrocodone Allergy (Mild, Verified 05/30/19 17:27) hallucination latex Allergy (Mild, Verified 05/30/19 17:27) morphine Allergy (Mild, Verified 05/30/19 17:27) phenyltoloxamine Allergy (Mild, Verified 05/30/19 17:27) hallucination Sulfa (Sulfonamide Antibiotics) [SULFA] Allergy (Unknown, Verified 05/30/19 17:27) povidone-iodine [From Betadine] Allergy (Verified 05/30/19 17:27) IVP DYE Allergy (Uncoded 05/30/19 17:27) - Review of Systems ROS: No change since H&P - Vital Signs and I&O's Vital Signs: Temperature 98.1 F Pulse Rate [Left Brachial] 86 Pulse Rate 87 Respiratory Rate 18 Blood Pressure [Right Arm] 134/87 Blood Pressure [Left Arm] 119/75 Blood Pressure 130/87 O2 Sat by Pulse Oximetry 98 Intake and Output: Intake & Output 05/30/19 05/31/19 06/01/19 06/02/19 11:59 11:59 11:59 11:59 Intake Total 2039 2290 / 2290 3030 / 3030 Balance 2039 2290 / 2290 3030 / 3030 - Physical Exam Oriented: Normal Eyes: Normal Ear: Normal Nose: Normal Throat: Normal Respiratory: Generalized, Diminished, Wheezes Cardiovascular: Normal : Normal Auscultation: Bowel Sounds: Normal Palpation: Normal Tenderness: Normal Skin: Normal Musculoskeletal: Normal Psychiatric: Normal Mood Description: Calm Affect: Normal Speech Pattern: Clear, Appropriate - Laboratory and Diagnostics Result Diagrams: 06/02/19 05:08 06/02/19 05:08 Labs: 06/01/19 23:49 Sputum - Expectorated Sputum Sputum Culture - Final 06/01/19 23:49 Sputum - Expectorated Sputum - Final 05/30/19 17:19 Blood Blood Culture - Preliminary 05/30/19 17:15 Blood Blood Culture - Preliminary Laboratory WBC 9.6 X10^3/uL (3.6-10.0) 06/02/19 05:08 RBC 4.99 X10^6/uL (3.5-5.4) 06/02/19 05:08 Hgb 15.6 g/dL (12.0-16.0) 06/02/19 05:08 Hct 44.8 % (36.0-47.0) 06/02/19 05:08 MCV 89.9 fL (80.0-100.0) 06/02/19 05:08 MCH 31.4 pg (27.0-34.0) 06/02/19 05:08 MCHC 34.9 g/dL (33.0-35.0) 06/02/19 05:08 RDW 12.9 % (11.6-16.5) 06/02/19 05:08 Plt Count 293 X10^3/uL (150.0-450.0) 06/02/19 05:08 MPV 6.3 fL (7.4-11.0) L 06/02/19 05:08 Neut % (Auto) 51.9 % (42.0-75.0) 06/02/19 05:08 Lymph % (Auto) 35.7 % (21.0-51.0) 06/02/19 05:08 [place] % (Auto) 8.7 % (0.0-13.0) 06/02/19 05:08 Eos % (Auto) 3.3 % (0.9-2.9) H 06/02/19 05:08 Baso % (Auto) 0.4 % (0.2-1.0) 06/02/19 05:08 Neut # (Auto) 5.0 x10^3/uL (2.2-4.8) H 06/02/19 05:08 Lymph # (Auto) 3.4 X10^3/uL (1.3-2.9) H 06/02/19 05:08 [place] # (Auto) 0.8 x10^3/uL (0.3-0.8) 06/02/19 05:08 Eos # (Auto) 0.3 x10^3/uL (0.0-0.2) H 06/02/19 05:08 Baso # (Auto) 0.0 X10^3/uL (0.0-0.1) 06/02/19 05:08 Absolute Nucleated RBC 0.0 /100WBC 06/02/19 05:08 Sodium 139 mmol/L (136-145) 06/02/19 05:08 Corrected Sodium 140 mmol/L (136-145) 06/02/19 05:08 Potassium 3.7 mmol/L (3.5-5.1) 06/02/19 05:08 Chloride 102 mmol/L (98-107) 06/02/19 05:08 Carbon Dioxide 29.0 mmol/L (21-32) 06/02/19 05:08 BUN 13 mg/dL (7-18) 06/02/19 05:08 Creatinine 0.91 mg/dL (0.55-1.02) 06/02/19 05:08 Est GFR (MDRD) Af Amer > 60 (>60) 06/02/19 05:08 Est GFR (MDRD) Non-Af > 60 (>60) 06/02/19 05:08 Glucose 127 mg/dL (65-99) H 06/02/19 05:08 POC Glucose (mg/dL) 134 mg/dL (65-99) H 06/02/19 05:44 Calcium 8.7 mg/dL (8.5-10.1) 06/02/19 05:08 Corrected Calcium 9.3 mg/dL (8.5-10.1) 06/02/19 05:08 Total Bilirubin 0.20 mg/dL (0.2-1.0) 06/02/19 05:08 AST 15 Units/L (15-37) 06/02/19 05:08 ALT 32 Units/L (12-78) 06/02/19 05:08 Alkaline Phosphatase 86 Units/L (46-116) 06/02/19 05:08 Total Protein 6.8 g/dL (6.4-8.2) 06/02/19 05:08 Albumin 3.3 g/dL (3.4-5.0) L 06/02/19 05:08 Globulin 3.5 g/dL (2.5-4.5) 06/02/19 05:08 Albumin/Globulin Ratio 0.9 Ratio (1.1-2.1) L 06/02/19 05:08 - Plan (1) Bronchopneumonia Status: Acute Plan: IV FORTAZ, IV LEVAQUIN, SOLU-MEDROL, RESPIRATORY TX, SUPPLEMENTAL TX, CONTINUE TO MONITOR
[2019-06-02] MEDS: SOLU-Medrol 40 MG VIAL IVP SCH ×3 (11:15→21:35)
[2019-06-02] MEDS ORDERED: NS 1/2 1000 ML IV 1,000 ML IV ONE (13:40)
[2019-06-02] MEDS ORDERED: HumaLOG SC PRN (16:25)
[2019-06-02] MEDS: LAMICTAL TAB 100 MG PO SCH (21:28)
[2019-06-02] MEDS: ZyrTEC TAB 10 MG PO SCH (21:28)
[2019-06-02] MEDS: PROPRANOLOL 60 MG PO SCH (21:29)
[2019-06-02] MEDS ORDERED: RESTORIL CAP 15 MG PO PRN (21:41)
[2019-06-02] MEDS ORDERED: COLACE CAP 100 MG PO PRN (21:41)
[2019-06-03] MEDS ORDERED: HumuLIN R SUBCUT PRN (00:20)
[2019-06-03] MEDS: SOLU-Medrol 40 MG VIAL IVP SCH (05:45)
[2019-06-03] MEDS: FORTAZ or TAZICEF VIAL INJ 1 G in NS 100 ML IV + SPIKE MINIBAG* 100 ML IV SCH (05:45)
[2019-06-03 05:55] LABS: BASOPHILS # (AUTO) 0.1 X10^3/uL (0.0-0.1); BASOPHILS % (AUTO) 0.7 % (0.2-1.0); EOSINOPHILS % (AUTO) 0.1 % (0.9-2.9); HEMATOCRIT 44.1 % (36.0-47.0); HEMOGLOBIN 15.5 g/dL (12.0-16.0); LYMPHOCYTES # (AUTO) 1.9 X10^3/uL (1.3-2.9); LYMPHOCYTES % (AUTO) 13.4 % (21.0-51.0); MEAN CORPUSCULAR HEMOGLOBIN 31.2 pg (27.0-34.0); MEAN CORPUSCULAR HGB CONC 35.1 g/dL (33.0-35.0); MEAN CORPUSCULAR VOLUME 88.9 fL (80.0-100.0); MEAN PLATELET VOLUME 6.4 fL (7.4-11.0); MONOCYTES # (AUTO) 0.4 x10^3/uL (0.3-0.8); MONOCYTES % (AUTO) 2.6 % (0.0-13.0); NEUTROPHILS % (AUTO) 83.2 % (42.0-75.0); PLATELET COUNT 342 X10^3/uL (150.0-450.0); RED BLOOD COUNT 4.96 X10^6/uL (3.5-5.4); RED CELL DISTRIBUTION WIDTH 12.7 % (11.6-16.5); WHITE BLOOD COUNT 14.4 X10^3/uL (3.6-10.0)
[2019-06-03] MEDS: NS 1/2 1000 ML IV 1,000 ML IV SCH (06:12)
[2019-06-03] MEDS ORDERED: NS 1/2 1000 ML IV 1,000 ML IV ONE (06:20)
[2019-06-03 06:29] LABS: ALANINE AMINOTRANSFERASE 31 Units/L (12-78); ALBUMIN 3.4 g/dL (3.4-5.0); ALKALINE PHOSPHATASE 86 Units/L (46-116); ASPARTATE AMINO TRANSFERASE 12 Units/L (15-37); BLOOD UREA NITROGEN 15 mg/dL (7-18); CALCIUM 9.1 mg/dL (8.5-10.1); CARBON DIOXIDE 26.8 mmol/L (21-32); CHLORIDE 101 mmol/L (98-107); COR NA(FOR HYPERGLY) 139 mmol/L (136-145); CREATININE 0.89 mg/dL (0.55-1.02); SODIUM 137 mmol/L (136-145); TOTAL PROTEIN 7.2 g/dL (6.4-8.2); eGFR NON BLACK RACES > 60 (>60)
[2019-06-03] MEDS: TYLENOL 325 MG TAB PO PRN (06:30)
[2019-06-03 07:39] VITALS: BP 118/71
[2019-06-03] MEDS: LEVAQUIN PREMIX IV 750 MG 750 MG/150 ML BAG IV SCH (08:42)
[2019-06-03] MEDS: ROBITUSSIN DM PO SCH (08:45)
[2019-06-03] MEDS: VSL#3 PO SCH (08:45)
[2019-06-03] MEDS: PROTONIX TAB 40 MG PO SCH (08:46)
[2019-06-03] MEDS: SINGULAIR TAB 10 MG PO SCH (08:46)
[2019-06-03] MEDS: AZELASTINE FLUTICASONE ENOSTRIL SCH (08:47)
[2019-06-03] MEDS: MAXZIDE 37.5/25 MG PO SCH (08:47)
[2019-06-03] MEDS: FLONASE NASAL SPRAY ENOSTRIL SCH (08:48)
[2019-06-03] MEDS: LOVENOX INJ 40 MG SYR SC SCH (08:48)
[2019-06-03] MEDS: PULMICORT NEB TX 0.5 MG NEB SCH (09:34)
[2019-06-03] MEDS: DUONEB 0.5 MG/3 MG (3 mL) NEB SCH (09:34)
[2019-06-03] MEDS ORDERED: SNACK - Diabetic Appropriate PO SCH (20:00)
== END 2019-06-03 11:55 | disposition home or self-care (01) | DRG 195 ==
LOC: MED/SURG 16:42
PROVIDERS: ADMIT Internal Medicine; ATTEND Internal Medicine
CPT/HCPCS: 36415; 71010; 71020; 71045; 71046; 80053; 85025; 87040; 87070; 87205; 94640; 94760; A4222; J0713; J1650; J1815; J1956; J2920; J3490; J7050; J7620; J7626